=== PATIENT | female | born 1990 | race Caucasian/White ===

== ENCOUNTER 2020-01-14 22:37 | Inpatient (IN) | payer OTHER, SELFPAY ==
[2020-01-14 22:41] VITALS: BP 114/74; BP 121/68; PULSE 84; PULSE 86; RESP 18; TEMP 36.9; O2SAT 96; O2SAT 99; BMI 30.7
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
[2020-01-14 23:09] VITALS: BP 121/68; PULSE 86; RESP 18; TEMP 36.9; O2SAT 96
[2020-01-14 23:50] LABS: Basophils Absolute Auto 0.1 X10*3/uL (0.0-0.2); Basophils Percent Auto 0.4 % (0-2); Eosinophils Absolute Auto 0.1 X10*3/uL (0.0-0.4); Eosinophils Percent Auto 0.6 % (0-4); Hematocrit 41.3 % (37-47); Hemoglobin 13.5 g/dl (12.0-16.0); Imm Gran Abs Auto 0.07 X10*3/uL (0.00-0.03); Imm Gran Pct Auto 0.5 % (0.0-0.4); Lymphocytes Absolute Auto 2.8 X10*3/uL (1.2-4.9); Lymphocytes Percent Auto 21.4 % (20-40); Mean Corpuscular HGB Conc 32.7 g/dl (31.0-35.0); Mean Corpuscular Volume 91.8 fL (80-98); Mean Platelet Volume 9.5 fL (9.4-12.3); Monocytes Percent Auto 7.4 % (2-11); Neutrophils Absolute Auto 9.2 X10*3/uL (2.0-8.3); Neutrophils Percent Auto 69.7 % (45-73); Platelet Count 303 X10*3/uL (160-400); Red Cell Distribution Width 12.6 % (11.0-16.0); White Blood Count 13.2 X10*3/uL (4.8-10.8)
[2020-01-14 23:51] LABS: MANUAL DIFF FLAG NO
[2020-01-14 23:54] LABS: UPreg QC Valid YES; Urine Pregnancy NEGATIVE (NEGATIVE)
[2020-01-15 00:02] VITALS: BP 130/76; PULSE 93; RESP 18; O2SAT 95
[2020-01-15 00:09] LABS: Amphetamine Screen Urine Not Detected (Not Detect); Barbiturates, Urine Not Detected (Not Detect); Benzodiazepines Screen Urine Not Detected (Not Detect); Cannabinoid Screen Urine Not Detected (Not Detect); Cocaine Screen Urine Not Detected (Not Detect); Ethanol < 10 mg/dL; Opiate Screen Urine Not Detected (Not Detect); Phencyclidine Screen Urine Not Detected (Not Detect)
[2020-01-15 00:11] LABS: Alanine Aminotransferase 47 U/L (0-31); Albumin Level 4.3 g/dL (3.5-5.0); Alkaline Phosphatase 86 U/L (39-117); Aspartate Amino Transferase 15 U/L (5-31); Bilirubin Direct 0.2 mg/dL (0.0-0.5); Bilirubin Total 0.4 mg/dL (0.0-1.0)
[2020-01-15 00:12] LABS: Alanine Aminotransferase 46 U/L (0-31); Albumin Level 4.2 g/dL (3.5-5.0); Alkaline Phosphatase 83 U/L (39-117); Anion Gap 12 (12-20); Aspartate Amino Transferase 13 U/L (5-31); Bilirubin Total 0.4 mg/dL (0.0-1.0); Blood Urea Nitrogen 17 mg/dL (9-16); Calcium 9.1 mg/dL (8.4-10.2); Carbon Dioxide 28 mmol/L (22-29); Chloride 105 mmol/L (96-108); Creatinine Clr Calc Pharmacy 97.3; Estimated Glomerular Filt Rate > 60; Glucose Random 107 mg/dL (60-115); Sodium 141 mmol/L (135-145); Total Protein 6.9 g/dL (6.5-8.0)
[2020-01-15 06:00] VITALS: BP 125/67; PULSE 89; RESP 18; TEMP 35.8; O2SAT 97
--- NOTE | 2020-01-15 07:06 | PC.NURSE ---
Report recieved. Pt currently sleeping, breakfast at bedside. Respirations even and unlabored, in no apparent distress. Pt is inpatient bedsearch.
[2020-01-15 09:04] VITALS: BP 130/64; PULSE 78; RESP 18; TEMP 36.7; O2SAT 96
[2020-01-15] MEDS: predniSONE 10 MG TABLET PO (09:31)
[2020-01-15 11:57] LABS: COVID-19 Test Negative (Negative)
--- NOTE | 2020-01-15 12:38 | PC.NURSE ---
Patient remains on 1:1 for safety. Pt took pillow case off pillow and began to put around her neck, pt easily redirected. Pt currently resting, agrees to remain safe.
--- NOTE | 2020-01-15 13:58 | MHC.CARE ---
t/w presented pt w a CV and she willingly signed. Pt escorted. to [facility] for admission.
[2020-01-15 18:00] VITALS: BP 109/61; PULSE 84; TEMP 36.4
--- NOTE | 2020-01-15 19:29 | PC.ADMIT ---
A 29 year old single female was admitted as a [facility] to [facility] at 1340 following referral from [facility]. Pt has no previous admissions here but reports recent hospitalizations at [facility] and [facility]. Pt was sent by ambulance to [facility] on 01/14/20 shortly after her admission there due to self-harming, suicidal ideation with plan, means and intention. Pt had recent evaluations at [facility] from their office and PHP after pt disclosed severe depression, suicidal ideation with a plan to either overdose or hang self. Pt has been unable to identify a precipitant and reported feeling overwhelmed with persistent thoughts of dying. Pt has researched ways of killing herself and has kept notes. Pt was discharged from [facility] on 12/25/19 and was her third IPLOC since October. Pt had been taking Lexapro which was started at [facility] and was discontinued because of increased suicidal thinking. Pt was started on Lamictal which was stopped because of a full body rash which was treated with prednisone. Prednisone taper was almost complete per pt; medical record showed prednisone 10mg PO ONE was given in ED. Pt was calm and cooperative upon arrival, but was found with a pillowcase wrapped around her neck; pt placed on 1:1 at that time. Pt reported command AH telling her to commit suicide. When pt was asked if she could come to staff with feelings of suicidality, pt smiled at this senior writer and said usually no . Pt denies substance issues. Medical issues include only the recent allergic reaction to Prednisone. Nurse-Nurse done and admitting orders obtained. Pt is being monitored in her room by a sitter at this time.
[2020-01-15] MEDS: QUEtiapine Fumarate 25 MG TABLET 50 MG PO (20:15)
[2020-01-16 06:25] VITALS: BP 99/58; PULSE 81; RESP 16; TEMP 36.8
[2020-01-16] MEDS: hydrOXYzine HCL 50 MG TABLET PO ×2 (08:33→13:53)
[2020-01-16] MEDS: predniSONE 10 MG TABLET 5 MG PO (08:35)
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
[2020-01-16] MEDS: ARIPiprazole 5 MG TABLET PO (14:44)
[2020-01-16 18:00] VITALS: BP 127/79; PULSE 101; TEMP 36.8
[2020-01-16] MEDS: QUEtiapine Fumarate 25 MG TABLET 50 MG PO (19:52)
[2020-01-16 23:59] VITALS: BP 116/59; PULSE 80; TEMP 36.5
[2020-01-17 06:30] VITALS: BP 102/99; PULSE 83; RESP 18; TEMP 36.2; O2SAT 96
[2020-01-17] MEDS: ARIPiprazole 5 MG TABLET 2.5 MG PO (09:13)
[2020-01-17] MEDS: hydrOXYzine HCL 50 MG TABLET PO ×2 (09:14→23:14)
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
--- NOTE | 2020-01-17 17:27 | P.PNPSI_ITS ---
Subjective Subjective Date of Service: 01/17/20 Reason For Visit: Major Depression Subjective Notes: Conditional Voluntary Interim History: Teresa remains focused on wanting to hurt herself and she is very sad about losing her BF and the changes with COVID. She continues to have self harming thoughts. Medication Compliance: Yes Side effects from medications: No Attending Groups: No Review of Systems Acute medical concerns: No Medical Review of Systems: unchanged Review of Systems Reports system reviewed and no additional complaints, except as documented and Reports as per [facility] Mental Status Exam Mental Status Exam Patient Appearance: Disheveled Patient Orientation: Person and Place Level of Consciousness: Appropriate Patient Behavior: Dependent and Good Eye Contact Mood Description: Calm, Apathetic and Cheerful Affect Description: Calm and Apathetic Ability to Follow Directions: Poor Speech Pattern: Spontaneous Speech and Coherent Memory Description: Intact Delusions: Not Present Thought Process: Distracted Thought Content: positive for Intact, positive for Suicidal Ideation and negative for Homicidal Ideation Depressive Symptoms: Increased Irritability, Crying Spells, Feelings of W orthlessness, Hopelessness, Feelings of Guilt, Thoughts of /Suicide and Difficulty Concentrating Judgement: Fair Diagnostics Vital Signs (24Hr): Vital Signs - 24 hr 01/16/20 18:00 01/16/20 23:59 01/17/20 06:30 Temperature 98.2 F 97.7 F 97.1 F Pulse Rate 101 H 80 83 Respiratory Rate 18 Blood Pressure 127/79 116/59 L 102/99 H Pulse Oximetry 96 Body Mass Index 30.7 Labs Results: 01/14/20 23:41 01/14/20 23:41 Medications Medications Current Medications Generic Name Dose Route Start Last Admin Trade Name Roslyn PRN Reason Stop Dose Admin Acetaminophen 650 mg 01/15/20 19:01 Acetaminophen 325 Mg Tablet PO Q6H PRN Headache/Pain Mild Scale (1-3) Al Hydroxide/Mg Hydroxide 30 ml 01/15/20 19:01 Magnesium Hydrox/Alum Hydrox 30 Ml Oral.Susp PO Q6H PRN Heartburn/Nausea Aripiprazole 2.5 mg 01/17/20 09:00 01/17/20 09:13 Aripiprazole 5 Mg Tablet PO 2.5 mg DAILY ASHLEY Administration Hydroxyzine HCl 25 mg 01/15/20 19:01 Hydroxyzine Hcl 25 Mg Tablet PO BEDTIME PRN Anxiety Hydroxyzine HCl 50 mg 01/15/20 19:59 01/17/20 09:14 Hydroxyzine Hcl 50 Mg Tablet PO 50 mg TID PRN Administration anxiety Magnesium Hydroxide 30 ml 01/15/20 19:01 Milk Of Magnesia 30 Ml Oral.Susp PO DAILY PRN Constipation Quetiapine Fumarate 25 mg 01/16/20 20:09 Quetiapine Fumarate 25 Mg Tablet PO BEDTIME MRX1 PRN anxiety/restlessness Allergies Allergies Allergy/AdvReac Type Severity Reaction Status Date / Time lamotrigine [From Lamictal] Allergy Rash Verified 01/14/20 23:14 Assessment & Plan Assessment & Plan (1) Major depressive disorder, recurrent severe without psychotic features: Status: Acute Code(s): F33.2 - Major depressive disorder, recurrent severe without psychotic features (2) Borderline personality disorder: Status: Acute Code(s): F60.3 - Borderline personality disorder Assessment and Plan: CT low dose abilify Collect collateral history Greater than 50% of the session was spent on counseling and/or coordination of care Patient educated on: diagnosis, medication risk/benefits and substance abuse Informed Consent: further education needed Reason for contiued inpatient stay Substantial Risk for: inability to function and rapid decompensation
[2020-01-17 18:00] VITALS: BP 110/66; PULSE 95; TEMP 36.8
[2020-01-17] MEDS: QUEtiapine Fumarate 25 MG TABLET PO (23:14)
[2020-01-18 06:35] VITALS: BP 104/56; PULSE 86; RESP 16; TEMP 36; O2SAT 96
--- NOTE | 2020-01-18 09:33 | P.PNPSI_ITS ---
Subjective Subjective Date of Service: 01/18/20 Reason For Visit: Major Depression Subjective Notes: Conditional Voluntary Interim History: Teresa was slightly brighter today. She has tolerated low dose of abilify, and she has maintained her BP. She slept well. She continues to have urges to hurt herself. She is not able to guarantee that she will not. She was encouraged to go to groups. Medication Compliance: Yes Side effects from medications: No Attending Groups: No Review of Systems Acute medical concerns: No Medical Review of Systems: unchanged Review of Systems Reports system reviewed and no additional complaints, except as documented and Reports as per [facility] Mental Status Exam Mental Status Exam Patient Appearance: Disheveled Patient Orientation: Person and Place Level of Consciousness: Appropriate Patient Behavior: Dependent and Good Eye Contact Mood Description: Calm, Apathetic and Cheerful Affect Description: Calm and Apathetic Ability to Follow Directions: Poor Speech Pattern: Spontaneous Speech and Coherent Memory Description: Intact Delusions: Not Present Thought Process: Distracted Thought Content: positive for Intact, positive for Suicidal Ideation and negative for Homicidal Ideation Depressive Symptoms: Increased Irritability, Crying Spells, Feelings of Worthlessness, Hopelessness, Feelings of Guilt, Thoughts of /Suicide and Difficulty Concentrating Judgement: Fair Diagnostics Vital Signs (24Hr): Vital Signs - 24 hr 01/17/20 18:00 01/18/20 06:35 Temperature 98.2 F 96.8 F Pulse Rate 95 86 Respiratory Rate 16 Blood Pressure 110/66 104/56 L Pulse Oximetry 96 Body Mass Index 30.7 Labs Results: 01/14/20 23:41 01/14/20 23:41 Medications Medications Current Medications Generic Name Dose Route Start Last Admin Trade Name Roslyn PRN Reason Stop Dose Admin Acetaminophen 650 mg 01/15/20 19:01 Acetaminophen 325 Mg Tablet PO Q6H PRN Headache/Pain Mild Scale (1-3) Al Hydroxide/Mg Hydroxide 30 ml 01/15/20 19:01 Magnesium Hydrox/Alum Hydrox 30 Ml Oral.Susp PO Q6H PRN Heartburn/Nausea Aripiprazole 5 mg 01/19/20 09:00 Aripiprazole 5 Mg Tablet PO DAILY ASHLEY Aripiprazole 2 mg 01/18/20 09:31 Aripiprazole 2 Mg Tablet PO 01/18/20 09:32 ONCE ONE Hydroxyzine HCl 25 mg 01/15/20 19:01 Hydroxyzine Hcl 25 Mg Tablet PO BEDTIME PRN Anxiety Hydroxyzine HCl 50 mg 01/15/20 19:59 01/17/20 23:14 Hydroxyzine Hcl 50 Mg Tablet PO 50 mg TID PRN Administration anxiety Magnesium Hydroxide 30 ml 01/15/20 19:01 Milk Of Magnesia 30 Ml Oral.Susp PO DAILY PRN Constipation Quetiapine Fumarate 25 mg 01/16/20 20:09 01/17/20 23:14 Quetiapine Fumarate 25 Mg Tablet PO 25 mg BEDTIME MRX1 PRN Administration anxiety/restlessness Allergies Allergies Allergy/AdvReac Type Severity Reaction Status Date / Time lamotrigine [From Lamictal] Allergy Rash Verified 01/14/20 23:14 Assessment & Plan Assessment & Plan (1) Major depressive disorder, recurrent severe without psychotic features: Status: Acute Code(s): F33.2 - Major depressive disorder, recurrent severe without psychotic features (2) Borderline personality disorder: Status: Acute Code(s): F60.3 - Borderline personality disorder Assessment and Plan: CT abilify Encourage coping skills Work with DDS around support options in community. Greater than 50% of the session was spent on counseling and/or coordination of care Patient educated on: diagnosis and medication risk/benefits Informed Consent: further education needed Reason for contiued inpatient stay Substantial Risk for: rapid decompensation
[2020-01-18] MEDS: ARIPiprazole 5 MG TABLET 2.5 MG PO (09:35)
[2020-01-18] MEDS: ARIPiprazole 2 MG TABLET PO (10:00)
[2020-01-18] MEDS: hydrOXYzine HCL 50 MG TABLET PO (12:55)
[2020-01-18 18:00] VITALS: BP 123/78; PULSE 95; TEMP 36.4
[2020-01-19] MEDS: QUEtiapine Fumarate 25 MG TABLET PO (00:14)
[2020-01-19] MEDS: hydrOXYzine HCL 50 MG TABLET PO ×3 (00:14→13:25)
[2020-01-19] MEDS: hydrOXYzine HCL 25 MG TABLET PO (01:23)
[2020-01-19 05:30] VITALS: BP 117/60; PULSE 101; RESP 16; TEMP 36.6
--- NOTE | 2020-01-19 06:00 | PC.NURSE ---
Patient sitting in hallway at start of shift with patient observer. Pt picking and scratching at arm and attempting to choke self with one hand. Pt required redirection an several occasions. Could not name coping tools and refused guided deep breathing or activities. 0015 received medication for sleep. Pt continued to sit in [place] and attempted self-harm via paper cut. Received medication for sleep at 0125 and went to bed. Slept intermittently until 0345 and sat in the kitchen reading magazines. Pt received additional PRN medication for anxiety.
[2020-01-19] MEDS: ARIPiprazole 5 MG TABLET PO (09:48)
--- NOTE | 2020-01-19 11:58 | HO.PSYCHPN ---
Subjective Subjective Reason For Visit: Major Depression Interim History: Teresa continues to be brighter today. She is tolerating abilify, and she has maintained her BP her pule high at 104. She slept well. She continues to have urges to hurt herself. She is not able to guarantee that she will not. She was encouraged to go to groups. Review of Systems Reports system reviewed and no additional complaints, except as documented and Reports as per [facility] Mental Status Exam Mental Status Exam Patient Appearance: Disheveled Patient Orientation: Person and Place Level of Consciousness: Appropriate Patient Behavior: Dependent and Good Eye Contact Mood Description: Calm, Apathetic and Cheerful Affect Description: Calm and Apathetic Ability to Follow Directions: Poor Speech Pattern: Spontaneous Speech and Coherent Memory Description: Intact Diagnostics Vital Signs (24Hr): Vital Signs - 24 hr 01/18/20 18:00 01/19/20 05:30 Temperature 97.5 F 97.9 F Pulse Rate 95 101 H Respiratory Rate 16 Blood Pressure 123/78 117/60 Body Mass Index 30.7 Labs Results: 01/14/20 23:41 01/14/20 23:41 Medications Medications Current Medications Generic Name Dose Route Start Last Admin Trade Name Freq PRN Reason Stop Dose Admin Acetaminophen 650 mg 01/15/20 19:01 Acetaminophen 325 Mg Tablet PO Q6H PRN Headache/Pain Mild Scale (1-3) Al Hydroxide/Mg Hydroxide 30 ml 01/15/20 19:01 Magnesium Hydrox/Alum Hydrox 30 Ml Oral.Susp PO Q6H PRN Heartburn/Nausea Aripiprazole 5 mg 01/19/20 09:00 01/19/20 09:48 Aripiprazole 5 Mg Tablet PO 5 mg DAILY ASHLEY Administration Hydroxyzine HCl 25 mg 01/15/20 19:01 01/19/20 01:23 Hydroxyzine Hcl 25 Mg Tablet PO 25 mg BEDTIME PRN Administration Anxiety Hydroxyzine HCl 50 mg 01/15/20 19:59 01/19/20 05:15 Hydroxyzine Hcl 50 Mg Tablet PO 50 mg TID PRN Administration anxiety Magnesium Hydroxide 30 ml 01/15/20 19:01 Milk Of Magnesia 30 Ml Oral.Susp PO DAILY PRN Constipation Quetiapine Fumarate 25 mg 01/16/20 20:09 01/19/20 00:14 Quetiapine Fumarate 25 Mg Tablet PO 25 mg BEDTIME MRX1 PRN Administration anxiety/restlessness Allergies Allergies Allergy/AdvReac Type Severity Reaction Status Date / Time lamotrigine [From Lamictal] Allergy Rash Verified 01/14/20 23:14 Assessment & Plan Assessment & Plan (1) Major depressive disorder, recurrent severe without psychotic features: Status: Acute Code(s): F33.2 - Major depressive disorder, recurrent severe without psychotic features (2) Borderline personality disorder: Status: Acute Code(s): F60.3 - Borderline personality disorder Assessment and Plan: CT abilify monitor vitals Encourage coping skills Work with DDS around support options in community. Greater than 50% of the session was spent on counseling and/or coordination of care
--- NOTE | 2020-01-19 15:07 | PC.NURSE ---
pt had blanket wrapped her arms stating she was cold. later told staff she scratched her arms. approx 6 scratches/cuts noted. when asked what she used she stated a staple. and handed it over to this technical proposal writer. discussed that we appreciate her honesty about what she has done but we may need to do something with the blanket. stated she would look to keep the blanket. this technical proposal writer agreeed but any further incidents we would have to remove the blanket and give her long sleeves to keep her arms warm and where we could visually see her arms more clearly.
--- NOTE | 2020-01-19 15:19 | PC.NURSE ---
PT REMAINS ON 1:1. STAFF AWARE TO KEEP AN EYE ON PTS HANDS AT ALL TIMES. AWARE TO ASK PT TO SEE HANDS OF COVERED BY BLANKET.
[2020-01-19 17:14] VITALS: BP 126/70; PULSE 104; TEMP 37
[2020-01-20] MEDS: QUEtiapine Fumarate 25 MG TABLET PO ×2 (00:07→01:05)
[2020-01-20] MEDS: hydrOXYzine HCL 50 MG TABLET PO ×2 (00:08→13:16)
[2020-01-20] MEDS: hydrOXYzine HCL 25 MG TABLET PO (01:05)
[2020-01-20 06:30] VITALS: BP 113/56; PULSE 86; RESP 18; TEMP 36.1; O2SAT 96
[2020-01-20] MEDS: ARIPiprazole 5 MG TABLET PO (08:50)
--- NOTE | 2020-01-20 12:16 | P.PNPSI_ITS ---
Subjective Subjective Reason For Visit: Major Depression Interim History: Teresa scratched self twice today with staple She is tolerating abilify, and she has maintained her BP and P She continues to have urges to hurt herself. She is not able to guarantee that she will not. She was encouraged to go to groups. Review of Systems Skin/Breast: Reports wounds (small supericial scratches on arm) Reports system reviewed and no additional complaints, except as documented and Reports as per [facility] Mental Status Exam Mental Status Exam Patient Appearance: Disheveled Patient Orientation: Person and Place Level of Consciousness: Appropriate Patient Behavior: Dependent and Good Eye Contact Mood Description: Calm, Apathetic and Cheerful Affect Description: Calm and Apathetic Ability to Follow Directions: Poor Speech Pattern: Spontaneous Speech and Coherent Memory Description: Intact Thought Process: Intact Thought Content: positive for Intact and positive for [place] Depressive Symptoms: Loss of Int. in Activity, Feelings of Worthlessness, Hopelessness, Thoughts of /Suicide and Loss of Energy Judgement: Poor Diagnostics Vital Signs (24Hr): Vital Signs - 24 hr 01/19/20 17:14 01/20/20 06:30 Temperature 98.6 F 96.9 F Pulse Rate 104 H 86 Respiratory Rate 18 Blood Pressure 126/70 113/56 L Pulse Oximetry 96 Body Mass Index 30.7 Labs Results: 01/14/20 23:41 01/14/20 23:41 Medications Medications Current Medications Generic Name Dose Route Start Last Admin Trade Name Freq PRN Reason Stop Dose Admin Acetaminophen 650 mg 01/15/20 19:01 Acetaminophen 325 Mg Tablet PO Q6H PRN Headache/Pain Mild Scale (1-3) Al Hydroxide/Mg Hydroxide 30 ml 01/15/20 19:01 Magnesium Hydrox/Alum Hydrox 30 Ml Oral.Susp PO Q6H PRN Heartburn/Nausea Aripiprazole 5 mg 01/19/20 09:00 01/20/20 08:50 Aripiprazole 5 Mg Tablet PO 5 mg DAILY ASHLEY Administration Hydroxyzine HCl 25 mg 01/15/20 19:01 01/20/20 01:05 Hydroxyzine Hcl 25 Mg Tablet PO 25 mg BEDTIME PRN Administration Anxiety Hydroxyzine HCl 50 mg 01/15/20 19:59 01/20/20 00:08 Hydroxyzine Hcl 50 Mg Tablet PO 50 mg TID PRN Administration anxiety Magnesium Hydroxide 30 ml 01/15/20 19:01 Milk Of Magnesia 30 Ml Oral.Susp PO DAILY PRN Constipation Quetiapine Fumarate 25 mg 01/16/20 20:09 01/20/20 01:05 Quetiapine Fumarate 25 Mg Tablet PO 25 mg BEDTIME MRX1 PRN Administration anxiety/restlessness Allergies Allergies Allergy/AdvReac Type Severity Reaction Status Date / Time lamotrigine [From Lamictal] Allergy Rash Verified 01/14/20 23:14 Assessment & Plan Assessment & Plan (1) Major depressive disorder, recurrent severe without psychotic features: Status: Acute Code(s): F33.2 - Major depressive disorder, recurrent severe without psychotic features (2) Borderline personality disorder: Status: Acute Code(s): F60.3 - Borderline personality disorder Assessment and Plan: CT abilify monitor vitals Encourage coping skills Work with DDS around support options in community. Greater than 50% of the session was spent on counseling and/or coordination of care Reason for contiued inpatient stay Substantial Risk for: harm to self, inability to function and rapid decompensation
[2020-01-20 16:28] VITALS: BP 131/73; PULSE 99; TEMP 36.8
[2020-01-21] MEDS: QUEtiapine Fumarate 25 MG TABLET PO (00:08)
[2020-01-21] MEDS: hydrOXYzine HCL 50 MG TABLET PO ×4 (00:08→21:34)
[2020-01-21] MEDS: ARIPiprazole 5 MG TABLET PO (08:38)
[2020-01-21 08:41] VITALS: BP 135/74; PULSE 80; RESP 16; TEMP 37.1; O2SAT 98
--- NOTE | 2020-01-21 09:29 | HO.PSYCHPN ---
Subjective Subjective Date of Service: 01/21/20 Reason For Visit: Major Depression Subjective Notes: Conditional Voluntary Interim History: Teresa did not self harm today, but she remains quite depressed. She reports that the lamictal that was prescribed previously was very helpful, but she developed a rash. We agreed to trileptal since she reports a great deal of social anxiety. Medication Compliance: Yes Side effects from medications: No Review of Systems Acute medical concerns: No Medical Review of Systems: unchanged Review of Systems Reports system reviewed and no additional complaints, except as documented and Reports as per [facility] Mental Status Exam Mental Status Exam Patient Appearance: Disheveled Patient Orientation: Person and Place Level of Consciousness: Appropriate Patient Behavior: Dependent and Good Eye Contact Mood Description: Calm, Apathetic and Cheerful Affect Description: Calm and Apathetic Ability to Follow Directions: Poor Speech Pattern: Spontaneous Speech and Coherent Memory Description: Intact Hallucinations: None Delusions: Not Present Thought Process: Intact Thought Content: positive for Intact, positive for [place], negative for Suicidal Ideation and negative for Homicidal Ideation Depressive Symptoms: Loss of Int. in Activity, Feelings of Worthlessness, Hopelessness, Thoughts of /Suicide and Loss of Energy Judgement: Poor Diagnostics Vital Signs (24Hr): Vital Signs - 24 hr 01/20/20 16:28 01/21/20 08:41 Temperature 98.3 F 98.8 F Pulse Rate 99 80 Respiratory Rate 16 Blood Pressure 131/73 135/74 Pulse Oximetry 98 Body Mass Index 30.7 Labs Results: 01/14/20 23:41 01/14/20 23:41 Medications Medications Current Medications Generic Name Dose Route Start Last Admin Trade Name Freq PRN Reason Stop Dose Admin Acetaminophen 650 mg 01/15/20 19:01 Acetaminophen 325 Mg Tablet PO Q6H PRN Headache/Pain Mild Scale (1-3) Al Hydroxide/Mg Hydroxide 30 ml 01/15/20 19:01 Magnesium Hydrox/Alum Hydrox 30 Ml Oral.Susp PO Q6H PRN Heartburn/Nausea Aripiprazole 5 mg 01/19/20 09:00 01/21/20 08:38 Aripiprazole 5 Mg Tablet PO 5 mg DAILY ASHLEY Administration Hydroxyzine HCl 25 mg 01/15/20 19:01 01/20/20 01:05 Hydroxyzine Hcl 25 Mg Tablet PO 25 mg BEDTIME PRN Administration Anxiety Hydroxyzine HCl 50 mg 01/15/20 19:59 01/21/20 08:38 Hydroxyzine Hcl 50 Mg Tablet PO 50 mg TID PRN Administration anxiety Magnesium Hydroxide 30 ml 01/15/20 19:01 Milk Of Magnesia 30 Ml Oral.Susp PO DAILY PRN Constipation Quetiapine Fumarate 25 mg 01/16/20 20:09 01/21/20 00:08 Quetiapine Fumarate 25 Mg Tablet PO 25 mg BEDTIME MRX1 PRN Administration anxiety/restlessness Allergies Allergies Allergy/AdvReac Type Severity Reaction Status Date / Time lamotrigine [From Lamictal] Allergy Rash Verified 01/14/20 23:14 Assessment & Plan Assessment & Plan (1) Major depressive disorder, recurrent severe without psychotic features: Status: Acute Code(s): F33.2 - Major depressive disorder, recurrent severe without psychotic features (2) Borderline personality disorder: Status: Acute Code(s): F60.3 - Borderline personality disorder Assessment and Plan: Begin trileptal CT treatment plan Greater than 50% of the session was spent on counseling and/or coordination of care Patient educated on: diagnosis and medication risk/benefits Informed Consent: further education needed Reason for contiued inpatient stay Substantial Risk for: harm to self and rapid decompensation
[2020-01-21 16:30] VITALS: BP 124/73; PULSE 89; TEMP 37.1
[2020-01-21] MEDS: OXcarbazepine 150 MG TABLET PO (21:34)
[2020-01-22 06:00] VITALS: BP 114/73; PULSE 82; TEMP 36.4
[2020-01-22] MEDS: ARIPiprazole 5 MG TABLET PO (08:37)
[2020-01-22] MEDS: OXcarbazepine 150 MG TABLET PO (08:37)
[2020-01-22] MEDS: hydrOXYzine HCL 50 MG TABLET PO ×2 (14:13→19:06)
[2020-01-22 16:58] VITALS: BP 126/81; PULSE 91; TEMP 37.1
--- NOTE | 2020-01-22 17:35 | P.PNPSI_ITS ---
Subjective Subjective Date of Service: 01/22/20 Reason For Visit: Major Depression Subjective Notes: Conditional Voluntary Interim History: Teresa did self harm today with martha. She remains quite depressed. She has tolerated the trileptal. Medication Compliance: Yes Side effects from medications: No Attending Groups: No Review of Systems Acute medical concerns: No Medical Review of Systems: unchanged Review of Systems Reports system reviewed and no additional complaints, except as documented and Reports as per [facility] Mental Status Exam Mental Status Exam Patient Appearance: Disheveled Patient Orientation: Person and Place Level of Consciousness: Appropriate Patient Behavior: Dependent and Good Eye Contact Mood Description: Calm, Apathetic and Cheerful Affect Description: Calm and Apathetic Ability to Follow Directions: Poor Speech Pattern: Spontaneous Speech and Coherent Memory Description: Intact Hallucinations: None Delusions: Not Present Thought Process: Intact Thought Content: positive for Intact, positive for [place], negative for Suicidal Ideation and negative for Homicidal Ideation Depressive Symptoms: Loss of Int. in Activity, Feelings of Worthlessness, Hopelessness, Thoughts of /Suicide and Loss of Energy Judgement: Poor Diagnostics Vital Signs (24Hr): Vital Signs - 24 hr 01/22/20 06:00 Temperature 97.6 F Pulse Rate 82 Blood Pressure 114/73 Body Mass Index 30.7 Labs Results: 01/14/20 23:41 01/14/20 23:41 Medications Medications Current Medications Generic Name Dose Route Start Last Admin Trade Name Freq PRN Reason Stop Dose Admin Acetaminophen 650 mg 01/15/20 19:01 Acetaminophen 325 Mg Tablet PO Q6H PRN Headache/Pain Mild Scale (1-3) Al Hydroxide/Mg Hydroxide 30 ml 01/15/20 19:01 Magnesium Hydrox/Alum Hydrox 30 Ml Oral.Susp PO Q6H PRN Heartburn/Nausea Aripiprazole 5 mg 01/19/20 09:00 01/22/20 08:37 Aripiprazole 5 Mg Tablet PO 5 mg DAILY ASHLEY Administration Bacitracin 1 appl 01/22/20 21:00 Bacitracin Oint 14 Gm Tube TOPICAL BID ASHLEY Protocol Hydroxyzine HCl 25 mg 01/15/20 19:01 01/20/20 01:05 Hydroxyzine Hcl 25 Mg Tablet PO 25 mg BEDTIME PRN Administration Anxiety Hydroxyzine HCl 50 mg 01/15/20 19:59 01/22/20 14:13 Hydroxyzine Hcl 50 Mg Tablet PO 50 mg TID PRN Administration anxiety Magnesium Hydroxide 30 ml 01/15/20 19:01 Milk Of Magnesia 30 Ml Oral.Susp PO DAILY PRN Constipation Oxcarbazepine 150 mg 01/21/20 21:00 01/22/20 08:37 Oxcarbazepine 150 Mg Tablet PO 150 mg BID ASHLEY Administration Quetiapine Fumarate 25 mg 01/16/20 20:09 01/21/20 00:08 Quetiapine Fumarate 25 Mg Tablet PO 25 mg BEDTIME MRX1 PRN Administration anxiety/restlessness Allergies Allergies Allergy/AdvReac Type Severity Reaction Status Date / Time lamotrigine [From Lamictal] Allergy Rash Verified 01/14/20 23:14 Assessment & Plan Assessment & Plan (1) Major depressive disorder, recurrent severe without psychotic features: Status: Acute Code(s): F33.2 - Major depressive disorder, recurrent severe without psychotic features (2) Borderline personality disorder: Status: Acute Code(s): F60.3 - Borderline personality disorder Assessment and Plan: Increase trileptal CT treatment plan CT 1:1 Greater than 50% of the session was spent on counseling and/or coordination of care Patient educated on: diagnosis and medication risk/benefits Informed Consent: further education needed Reason for contiued inpatient stay Substantial Risk for: harm to self and rapid decompensation
[2020-01-22] MEDS: OXcarbazepine 300 MG TABLET PO (20:30)
[2020-01-23 06:25] VITALS: BP 122/58; PULSE 77; RESP 16; TEMP 36.9
[2020-01-23] MEDS: OXcarbazepine 300 MG TABLET PO ×2 (08:31→23:03)
[2020-01-23] MEDS: ARIPiprazole 5 MG TABLET PO (08:31)
[2020-01-23] MEDS: Bacitracin Oint 14 GM TUBE 1 APPL TOPICAL ×2 (08:32→23:03)
--- NOTE | 2020-01-23 09:31 | P.PNPSI_ITS ---
Subjective Subjective Date of Service: 01/23/20 Reason For Visit: Major Depression Subjective Notes: Conditional Voluntary Interim History: Teresa did self harm today with martha. We discussed why she keeps doing this since she states that it makes her feel worse when she does this. She agreed to work on skills and to go to groups. She remains quite depressed. She has tolerated the increase in trileptal. Medication Compliance: Yes Side effects from medications: No Attending Groups: No Review of Systems Acute medical concerns: No Medical Review of Systems: unchanged Review of Systems Reports system reviewed and no additional complaints, except as documented and Reports as per [facility] Mental Status Exam Mental Status Exam Patient Appearance: Disheveled Patient Orientation: Person and Place Level of Consciousness: Appropriate Patient Behavior: Dependent and Good Eye Contact Mood Description: Calm, Apathetic and Cheerful Affect Description: Calm and Apathetic Ability to Follow Directions: Poor Speech Pattern: Spontaneous Speech and Coherent Memory Description: Intact Hallucinations: None Delusions: Not Present Thought Process: Intact Thought Content: positive for Intact, positive for [place], negative for Suicidal Ideation and negative for Homicidal Ideation Depressive Symptoms: Loss of Int. in Activity, Feelings of Worthlessness, Hop elessness, Thoughts of /Suicide and Loss of Energy Judgement: Poor Diagnostics Vital Signs (24Hr): Vital Signs - 24 hr 01/22/20 16:58 01/23/20 06:25 Temperature 98.8 F 98.5 F Pulse Rate 91 77 Respiratory Rate 16 Blood Pressure 126/81 122/58 L Body Mass Index 30.7 Labs Results: 01/14/20 23:41 01/14/20 23:41 Medications Medications Current Medications Generic Name Dose Route Start Last Admin Trade Name Roslyn PRN Reason Stop Dose Admin Acetaminophen 650 mg 01/15/20 19:01 Acetaminophen 325 Mg Tablet PO Q6H PRN Headache/Pain Mild Scale (1-3) Al Hydroxide/Mg Hydroxide 30 ml 01/15/20 19:01 Magnesium Hydrox/Alum Hydrox 30 Ml Oral.Susp PO Q6H PRN Heartburn/Nausea Aripiprazole 5 mg 01/19/20 09:00 01/23/20 08:31 Aripiprazole 5 Mg Tablet PO 5 mg DAILY ASHLEY Administration Bacitracin 1 appl 01/22/20 21:00 01/23/20 08:32 Bacitracin Oint 14 Gm Tube TOPICAL 1 appl BID ASHLEY Administration Protocol Hydroxyzine HCl 25 mg 01/15/20 19:01 01/20/20 01:05 Hydroxyzine Hcl 25 Mg Tablet PO 25 mg BEDTIME PRN Administration Anxiety Hydroxyzine HCl 50 mg 01/15/20 19:59 01/22/20 19:06 Hydroxyzine Hcl 50 Mg Tablet PO 50 mg TID PRN Administration anxiety Magnesium Hydroxide 30 ml 01/15/20 19:01 Milk Of Magnesia 30 Ml Oral.Susp PO DAILY PRN Constipation Oxcarbazepine 300 mg 01/22/20 21:00 01/23/20 08:31 Oxcarbazepine 300 Mg Tablet PO 300 mg BID ASHLEY Administration Quetiapine Fumarate 25 mg 01/16/20 20:09 01/21/20 00:08 Quetiapine Fumarate 25 Mg Tablet PO 25 mg BEDTIME MRX1 PRN Administration anxiety/restlessness Allergies Allergies Allergy/AdvReac Type Severity Reaction Status Date / Time lamotrigine [From Lamictal] Allergy Rash Verified 01/14/20 23:14 Assessment & Plan Assessment & Plan (1) Major depressive disorder, recurrent severe without psychotic features: Status: Acute Code(s): F33.2 - Major depressive disorder, recurrent severe without psychotic features Assessment and Plan: CT current treatment plan CT 1:1 Liase with DDS Greater than 50% of the session was spent on counseling and/or coordination of care
[2020-01-23 16:30] VITALS: BP 127/75; PULSE 100; TEMP 36.8
[2020-01-23] MEDS: hydrOXYzine HCL 50 MG TABLET PO (16:44)
[2020-01-23] MEDS: hydrOXYzine HCL 25 MG TABLET PO (23:03)
[2020-01-24] MEDS: QUEtiapine Fumarate 25 MG TABLET PO ×2 (00:22→23:49)
[2020-01-24 06:27] VITALS: BP 109/66; PULSE 87; RESP 16; TEMP 36.5; O2SAT 98
[2020-01-24] MEDS: ARIPiprazole 5 MG TABLET PO (09:02)
[2020-01-24] MEDS: OXcarbazepine 300 MG TABLET PO ×2 (09:02→22:03)
[2020-01-24] MEDS: Bacitracin Oint 14 GM TUBE 1 APPL TOPICAL ×2 (09:04→22:04)
--- NOTE | 2020-01-24 09:30 | P.PNPSI_ITS ---
Subjective Subjective Date of Service: 01/24/20 Reason For Visit: Major Depression Subjective Notes: Conditional Voluntary Interim History: Teresa did self harm last evening. She has been more active and is clearly able to express that she can not go home to her mother. She hopes for an apartment with staff. She remains quite depressed. She has tolerated the increase in trileptal. Medication Compliance: Yes Side effects from medications: No Attending Groups: No Review of Systems Acute medical concerns: No Medical Review of Systems: unchanged Review of Systems Reports system reviewed and no additional complaints, except as documented and R eports as per HPI Mental Status Exam Mental Status Exam Patient Appearance: Disheveled Patient Orientation: Person and Place Level of Consciousness: Appropriate Patient Behavior: Dependent and Good Eye Contact Mood Description: Calm, Apathetic and Cheerful Affect Description: Calm and Apathetic Ability to Follow Directions: Poor Speech Pattern: Spontaneous Speech and Coherent Memory Description: Intact Hallucinations: None Delusions: Not Present Thought Process: Intact Thought Content: positive for Intact, positive for [place], negative for Suici astrid Ideation and negative for Homicidal Ideation Depressive Symptoms: Loss of Int. in Activity, Feelings of Worthlessness, Hopelessness, Thoughts of /Suicide and Loss of Energy Judgement: Poor Diagnostics Vital Signs (24Hr): Vital Signs - 24 hr 01/23/20 16:30 01/24/20 06:27 Temperature 98.2 F 97.7 F Pulse Rate 100 87 Respiratory Rate 16 Blood Pressure 127/75 109/66 Pulse Oximetry 98 Body Mass Index 30.7 Labs Results: 01/14/20 23:41 01/14/20 23:41 Medications Medications Current Medications Generic Name Dose Route Start Last Admin Trade Name Roslyn PRN Reason Stop Dose Admin Acetaminophen 650 mg 01/15/20 19:01 Acetaminophen 325 Mg Tablet PO Q6H PRN Headache/Pain Mild Scale (1-3) Al Hydroxide/Mg Hydroxide 30 ml 01/15/20 19:01 Magnesium Hydrox/Alum Hydrox 30 Ml Oral.Susp PO Q6H PRN Heartburn/Nausea Aripiprazole 5 mg 01/19/20 09:00 01/24/20 09:02 Aripiprazole 5 Mg Tablet PO 5 mg DAILY ASHLEY Administration Bacitracin 1 appl 01/22/20 21:00 01/24/20 09:04 Bacitracin Oint 14 Gm Tube TOPICAL 1 appl BID ASHLEY Administration Protocol Hydroxyzine HCl 25 mg 01/15/20 19:01 01/23/20 23:03 Hydroxyzine Hcl 25 Mg Tablet PO 25 mg BEDTIME PRN Administration Anxiety Hydroxyzine HCl 50 mg 01/15/20 19:59 01/23/20 16:44 Hydroxyzine Hcl 50 Mg Tablet PO 50 mg TID PRN Administration anxiety Magnesium Hydroxide 30 ml 01/15/20 19:01 Milk Of Magnesia 30 Ml Oral.Susp PO DAILY PRN Constipation Oxcarbazepine 300 mg 01/22/20 21:00 01/24/20 09:02 Oxcarbazepine 300 Mg Tablet PO 300 mg BID ASHLEY Administration Quetiapine Fumarate 25 mg 01/16/20 20:09 01/24/20 00:22 Quetiapine Fumarate 25 Mg Tablet PO 25 mg BEDTIME MRX1 PRN Administration anxiety/restlessness Allergies Allergies Allergy/AdvReac Type Severity Reaction Status Date / Time lamotrigine [From Lamictal] Allergy Rash Verified 01/14/20 23:14 Assessment & Plan Assessment & Plan (1) Major depressive disorder, recurrent severe without psychotic features: Status: Acute Code(s): F33.2 - Major depressive disorder, recurrent severe without psychotic features Assessment and Plan: Continue current treatment plan Greater than 50% of the session was spent on counseling and/or coordination of care Patient educated on: diagnosis and medication risk/benefits Informed Consent: further education needed Reason for contiued inpatient stay Substantial Risk for: harm to self
[2020-01-24 17:59] VITALS: BP 119/70; PULSE 94; TEMP 36.6
[2020-01-25 06:25] VITALS: BP 111/64; PULSE 85; RESP 16; TEMP 36.6; O2SAT 97
--- NOTE | 2020-01-25 09:26 | P.PNPSI_ITS ---
Subjective Subjective Date of Service: 01/25/20 Reason For Visit: Major Depression Subjective Notes: Conditional Voluntary Interim History: Teresa has had no self harm for the last 24 hours. She has been going to groups and finding them helpful. She is also reading a lot of books. She has been more active and is clearly able to express that she can not go home to her mother. She hopes for an apartment with staff. She remains quite depressed. She has tolerated the increase in trileptal. Medication Compliance: Yes Side effects from medications: No Attending Groups: No Review of Systems Acute medical concerns: No Medical Review of Systems: unchanged Review of Systems Reports system reviewed and no additional complaints, except as documented and Reports as per [facility] Mental Status Exam Mental Status Exam Patient Appearance: Well Grooomed Patient Orientation: Person and Place Level of Consciousness: Appropriate Patient Behavior: Dependent and Good Eye Contact Mood Description: Calm and Apathetic Affect Description: Calm and Apathetic Ability to Follow Directions: Poor Speech Pattern: Spontaneous Speech and Coherent Memory Description: Intact Hallucinations: None Delusions: Not Present Thought Process: Intact Thought Content: positive for Intact, positive for [place], negative for Afshan cidal Ideation and negative for Homicidal Ideation Depressive Symptoms: Loss of Int. in Activity, Feelings of Worthlessness, Hopelessness, Thoughts of /Suicide and Loss of Energy Judgement: Poor Diagnostics Vital Signs (24Hr): Vital Signs - 24 hr 01/24/20 17:59 01/25/20 06:25 Temperature 97.9 F 97.8 F Pulse Rate 94 85 Respiratory Rate 16 Blood Pressure 119/70 111/64 Pulse Oximetry 97 Body Mass Index 30.7 Labs Results: 01/14/20 23:41 01/14/20 23:41 Medications Medications Current Medications Generic Name Dose Route Start Last Admin Trade Name Freq PRN Reason Stop Dose Admin Acetaminophen 650 mg 01/15/20 19:01 Acetaminophen 325 Mg Tablet PO Q6H PRN Headache/Pain Mild Scale (1-3) Al Hydroxide/Mg Hydroxide 30 ml 01/15/20 19:01 Magnesium Hydrox/Alum Hydrox 30 Ml Oral.Susp PO Q6H PRN Heartburn/Nausea Aripiprazole 5 mg 01/19/20 09:00 01/24/20 09:02 Aripiprazole 5 Mg Tablet PO 5 mg DAILY ASHLEY Administration Bacitracin 1 appl 01/22/20 21:00 01/24/20 22:04 Bacitracin Oint 14 Gm Tube TOPICAL 1 appl BID ASHLEY Administration Protocol Hydroxyzine HCl 25 mg 01/15/20 19:01 01/23/20 23:03 Hydroxyzine Hcl 25 Mg Tablet PO 25 mg BEDTIME PRN Administration Anxiety Hydroxyzine HCl 50 mg 01/15/20 19:59 01/23/20 16:44 Hydroxyzine Hcl 50 Mg Tablet PO 50 mg TID PRN Administration anxiety Magnesium Hydroxide 30 ml 01/15/20 19:01 Milk Of Magnesia 30 Ml Oral.Susp PO DAILY PRN Constipation Oxcarbazepine 300 mg 01/22/20 21:00 01/24/20 22:03 Oxcarbazepine 300 Mg Tablet PO 300 mg BID ASHLEY Administration Quetiapine Fumarate 25 mg 01/16/20 20:09 01/24/20 23:49 Quetiapine Fumarate 25 Mg Tablet PO 25 mg BEDTIME MRX1 PRN Administration anxiety/restlessness Allergies Allergies Allergy/AdvReac Type Severity Reaction Status Date / Time lamotrigine [From Lamictal] Allergy Rash Verified 01/14/20 23:14 Assessment & Plan Assessment & Plan (1) Major depressive disorder, recurrent severe without psychotic features: Status: Acute Code(s): F33.2 - Major depressive disorder, recurrent severe without psychotic features Assessment and Plan: CT current treatment plan Work with [facility] and [facility] regarding supportive housing Greater than 50% of the session was spent on counseling and/or coordination of care Patient educated on: diagnosis and medication risk/benefits Informed Consent: further education needed Reason for contiued inpatient stay Substantial Risk for: harm to self and inability to function
[2020-01-25] MEDS: ARIPiprazole 5 MG TABLET PO (10:26)
[2020-01-25] MEDS: OXcarbazepine 300 MG TABLET PO ×2 (10:27→21:22)
--- NOTE | 2020-01-25 16:09 | PC.NURSE ---
Teresa signed a 3-day notice today on 01/25/20, 3 day notice will be up on 01/30/20
[2020-01-25 18:00] VITALS: BP 127/86; PULSE 120; TEMP 36.2
[2020-01-25] MEDS: hydrOXYzine HCL 25 MG TABLET PO (21:28)
[2020-01-26 07:25] VITALS: BP 118/72; PULSE 77; TEMP 36.5
[2020-01-26] MEDS: OXcarbazepine 300 MG TABLET PO ×2 (09:09→21:52)
[2020-01-26] MEDS: ARIPiprazole 5 MG TABLET PO (09:09)
[2020-01-26 16:54] VITALS: BP 129/64; PULSE 87; TEMP 36.7
[2020-01-26] MEDS: hydrOXYzine HCL 50 MG TABLET PO (16:58)
[2020-01-26] MEDS: hydrOXYzine HCL 25 MG TABLET PO (21:56)
--- NOTE | 2020-01-27 00:41 | P.PNPSI_ITS ---
Subjective Subjective Date of Service: 01/26/20 Reason For Visit: Major Depression Interim History: Vitals reviewed: WnL Labs reviewed: no new labs Pt seen, chart reviewed and case discussed with nursing staff Pt is lying on bed under the covers; she smiles at remote mortgage underwriter and says she's good and denies any SI. She is calm and pleasant but has few words and only speaks when answering direct questions; she denies any complaints. Attending Pathologist asked about her 3 day which is due next week and pt said she's ready to go. Staff reports pt is med adherent; she remains on 1:1 but has recently been w [facility] behavioral incident Medication Compliance: Yes Attending Groups: No Review of Systems Reports system reviewed and no additional complaints, except as documented and Reports as per [facility] Mental Status Exam Mental Status Exam Patient Appearance: Appropriate Patient Orientation: Person, Place and Time Level of Consciousness: Awake and Appropriate Patient Behavior: Guarded and Poor Eye Contact Mood Description: Calm and Withdrawn Affect Description: Calm and Withdrawn Ability to Follow Directions: Fair Speech Pattern: Clear Thought Process: Goal Oriented Thought Content: positive for Goal Oriented and positive for Evasive Judgement and Insight: impaired Diagnostics Vital Signs (24Hr): Vital Signs - 24 hr 01/26/20 07:25 01/26/20 16:54 Temperature 97.7 F 98.1 F Pulse Rate 77 87 Blood Pressure 118/72 129/64 Body Mass Index 30.7 Labs Results: 01/14/20 23:41 01/14/20 23:41 Medications Medications Current Medications Generic Name Dose Route Start Last Admin Trade Name Freq PRN Reason Stop Dose Admin Acetaminophen 650 mg 01/15/20 19:01 Acetaminophen 325 Mg Tablet PO Q6H PRN Headache/Pain Mild Scale (1-3) Al Hydroxide/Mg Hydroxide 30 ml 01/15/20 19:01 Magnesium Hydrox/Alum Hydrox 30 Ml Oral.Susp PO Q6H PRN Heartburn/Nausea Aripiprazole 5 mg 01/19/20 09:00 01/26/20 09:09 Aripiprazole 5 Mg Tablet PO 5 mg DAILY ASHLEY Administration Bacitracin 1 appl 01/22/20 21:00 01/26/20 21:53 Bacitracin Oint 14 Gm Tube TOPICAL Not Given BID [facility] Protocol Hydroxyzine HCl 25 mg 01/15/20 19:01 01/26/20 21:56 Hydroxyzine Hcl 25 Mg Tablet PO 25 mg BEDTIME PRN Administration Anxiety Hydroxyzine HCl 50 mg 01/15/20 19:59 01/26/20 16:58 Hydroxyzine Hcl 50 Mg Tablet PO 50 mg TID PRN Administration anxiety Magnesium Hydroxide 30 ml 01/15/20 19:01 Milk Of Magnesia 30 Ml Oral.Susp PO DAILY PRN Constipation Oxcarbazepine 300 mg 01/22/20 21:00 01/26/20 21:52 Oxcarbazepine 300 Mg Tablet PO 300 mg BID ASHLEY Administration Quetiapine Fumarate 25 mg 01/16/20 20:09 01/24/20 23:49 Quetiapine Fumarate 25 Mg Tablet PO 25 mg BEDTIME MRX1 PRN Administration anxiety/restlessness Allergies Allergies Allergy/AdvReac Type Severity Reaction Status Date / Time lamotrigine [From Lamictal] Allergy Rash Verified 01/14/20 23:14 Assessment & Plan Pt with hx of depression stabilizing on unit Pt has 3 day notice in No changes to current treatment plan
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
[2020-01-27 06:00] VITALS: BP 113/58; PULSE 73; TEMP 36.4
[2020-01-27] MEDS: OXcarbazepine 300 MG TABLET PO ×2 (09:20→23:02)
[2020-01-27] MEDS: ARIPiprazole 5 MG TABLET PO (09:20)
[2020-01-27 19:00] VITALS: BP 132/72; PULSE 110; TEMP 37.1
[2020-01-27] MEDS: Bacitracin Oint 14 GM TUBE 1 APPL TOPICAL (23:02)
--- NOTE | 2020-01-27 23:59 | P.PNPSI_ITS ---
Subjective Subjective Date of Service: 01/27/20 Reason For Visit: Major Depression Interim History: Vitals reviewed:mild htn Labs reviewed Pt seen, chart reviewed and case discussed with nursing balance staff inspector met with patient in the milue. Pt does not make eye contact. She reports she's good and denies any problems or complaints. She remains reticent and only answers questions with few words. Staff reports they see patient has improving; she is adherent with medications and demonstrating safe behaviors. Medication Compliance: Yes Review of Systems Reports system reviewed and no additional complaints, except as documented and Reports as per [facility] Mental Status Exam Mental Status Exam Patient Appearance: Appropriate Patient Orientation: Person, Place and Time Level of Consciousness: Awake and Appropriate Patient Behavior: Guarded Mood Description: Constricted Affect Description: Calm and Suspicious Ability to Follow Directions: Good Speech Pattern: Clear and Soft-Spoken Thought Process: Goal Oriented Thought Content: positive for Goal Oriented Judgement and Insight: impaired Diagnostics Vital Signs (24Hr): Vital Signs - 24 hr 01/27/20 06:00 01/27/20 19:00 Temperature 97.5 F 98.7 F Pulse Rate 73 110 H Blood Pressure 113/58 L 132/72 Body Mass Index 30.7 Labs Results: 01/14/20 23:41 01/14/20 23:41 Medications Medications Current Medications Generic Name Dose Route Start Last Admin Trade Name Brunoq PRN Reason Stop Dose Admin Acetaminophen 650 mg 01/15/20 19:01 Acetaminophen 325 Mg Tablet PO Q6H PRN Headache/Pain Mild Scale (1-3) Al Hydroxide/Mg Hydroxide 30 ml 01/15/20 19:01 Magnesium Hydrox/Alum Hydrox 30 Ml Oral.Susp PO Q6H PRN Heartburn/Nausea Aripiprazole 5 mg 01/19/20 09:00 01/27/20 09:20 Aripiprazole 5 Mg Tablet PO 5 mg DAILY ASHLEY Administration Bacitracin 1 appl 01/22/20 21:00 01/27/20 23:02 Bacitracin Oint 14 Gm Tube TOPICAL 1 appl BID ASHLEY Administration Protocol Hydroxyzine HCl 25 mg 01/15/20 19:01 01/26/20 21:56 Hydroxyzine Hcl 25 Mg Tablet PO 25 mg BEDTIME PRN Administration Anxiety Hydroxyzine HCl 50 mg 01/15/20 19:59 01/26/20 16:58 Hydroxyzine Hcl 50 Mg Tablet PO 50 mg TID PRN Administration anxiety Magnesium Hydroxide 30 ml 01/15/20 19:01 Milk Of Magnesia 30 Ml Oral.Susp PO DAILY PRN Constipation Oxcarbazepine 300 mg 01/22/20 21:00 01/27/20 23:02 Oxcarbazepine 300 Mg Tablet PO 300 mg BID ASHLEY Administration Quetiapine Fumarate 25 mg 01/16/20 20:09 01/24/20 23:49 Quetiapine Fumarate 25 Mg Tablet PO 25 mg BEDTIME MRX1 PRN Administration anxiety/restlessness Allergies Allergies Allergy/AdvReac Type Severity Reaction Status Date / Time lamotrigine [From Lamictal] Allergy Rash Verified 01/14/20 23:14 Assessment & Plan Pt stabilizing on unit 3 day notice submitted no changes to tx plan
[2020-01-28] MEDS: hydrOXYzine HCL 50 MG TABLET PO ×2 (00:16→23:31)
[2020-01-28] MEDS: QUEtiapine Fumarate 25 MG TABLET PO (00:16)
[2020-01-28 06:40] VITALS: BP 108/63; PULSE 85; RESP 16; TEMP 36.6
[2020-01-28] MEDS: ARIPiprazole 5 MG TABLET PO (08:52)
[2020-01-28] MEDS: OXcarbazepine 300 MG TABLET PO ×2 (08:52→23:31)
--- NOTE | 2020-01-28 09:25 | HO.PSYCHPN ---
Subjective Subjective Date of Service: 01/28/20 Reason For Visit: Major Depression Subjective Notes: 3 Day Interim History: Pt seen, chart reviewed and case discussed with nursing staff Teresa reports that she is feeling much better. She has been speaking with her mother and she is feeling safe to go back and live with her. She has no SI. She wants to be home for the holiday. She reports that she can manage to keep her safety. She has not scratched very much over the weekend. She feels she can be safe on 5 ULB and will let staff know if she feels that she can not manage. Medication Compliance: Yes Side effects from medications: No Attending Groups: Yes Review of Systems Acute medical concerns: No Medical Review of Systems: unchanged Review of Systems Reports system reviewed and no additional complaints, except as documented and Reports as per [facility] Mental Status Exam Mental Status Exam Patient Appearance: Appropriate Patient Orientation: Person, Place and Time Level of Consciousness: Awake and Appropriate Patient Behavior: Guarded Mood Description: Constricted Affect Description: Calm and Suspicious Ability to Follow Directions: Good Speech Pattern: Clear and Soft-Spoken Memory Description: Intact Hallucinations: None Delusions: Not Present Thought Process: Goal Oriented Thought Content: positive for Goal Oriented, negative for Suicidal Ideation and negative for Homicidal Ideation Depressive Symptoms: Low Self Esteem Judgement: Fair Judgement and Insight: impaired Diagnostics Vital Signs (24Hr): Vital Signs - 24 hr 01/27/20 19:00 01/28/20 06:40 Temperature 98.7 F 97.9 F Pulse Rate 110 H 85 Respiratory Rate 16 Blood Pressure 132/72 108/63 Body Mass Index 30.7 Labs Results: 01/14/20 23:41 01/14/20 23:41 Medications Medications Current Medications Generic Name Dose Route Start Last Admin Trade Name Freq PRN Reason Stop Dose Admin Acetaminophen 650 mg 01/15/20 19:01 Acetaminophen 325 Mg Tablet PO Q6H PRN Headache/Pain Mild Scale (1-3) Al Hydroxide/Mg Hydroxide 30 ml 01/15/20 19:01 Magnesium Hydrox/Alum Hydrox 30 Ml Oral.Susp PO Q6H PRN Heartburn/Nausea Aripiprazole 5 mg 01/19/20 09:00 01/28/20 08:52 Aripiprazole 5 Mg Tablet PO 5 mg DAILY ASHLEY Administration Bacitracin 1 appl 01/22/20 21:00 01/27/20 23:02 Bacitracin Oint 14 Gm Tube TOPICAL 1 appl BID ASHLEY Administration Protocol Hydroxyzine HCl 25 mg 01/15/20 19:01 01/26/20 21:56 Hydroxyzine Hcl 25 Mg Tablet PO 25 mg BEDTIME PRN Administration Anxiety Hydroxyzine HCl 50 mg 01/15/20 19:59 01/28/20 00:16 Hydroxyzine Hcl 50 Mg Tablet PO 50 mg TID PRN Administration anxiety Magnesium Hydroxide 30 ml 01/15/20 19:01 Milk Of Magnesia 30 Ml Oral.Susp PO DAILY PRN Constipation Oxcarbazepine 300 mg 01/22/20 21:00 01/28/20 08:52 Oxcarbazepine 300 Mg Tablet PO 300 mg BID ASHLEY Administration Quetiapine Fumarate 25 mg 01/16/20 20:09 01/28/20 00:16 Quetiapine Fumarate 25 Mg Tablet PO 25 mg BEDTIME MRX1 PRN Administration anxiety/restlessness Allergies Allergies Allergy/AdvReac Type Severity Reaction Status Date / Time lamotrigine [From Lamictal] Allergy Rash Verified 01/14/20 23:14 Assessment & Plan Assessment & Plan (1) Major depressive disorder, recurrent severe without psychotic features: Status: Acute Code(s): F33.2 - Major depressive disorder, recurrent severe without psychotic features Assessment and Plan: Advance to 5 ULB If maintains then plan DC for 01/28 or 01/29 Greater than 50% of the session was spent on counseling and/or coordination of care Patient educated on: diagnosis and medication risk/benefits Informed Consent: further education needed Reason for contiued inpatient stay Substantial Risk for: rapid decompensation
[2020-01-28 16:45] VITALS: BP 129/80; PULSE 88; TEMP 37.2
[2020-01-29 06:10] VITALS: BP 110/61; PULSE 82; RESP 16; TEMP 36.9; O2SAT 98
[2020-01-29] MEDS: OXcarbazepine 300 MG TABLET PO (08:43)
[2020-01-29] MEDS: ARIPiprazole 5 MG TABLET PO (08:43)
[2020-01-29] MEDS: Bacitracin Oint 14 GM TUBE 1 APPL TOPICAL (08:46)
--- NOTE | 2020-01-29 09:32 | HO.PSYCHPN ---
Subjective Subjective Reason For Visit: Major Depression Review of Systems Reports system reviewed and no additional complaints, except as documented and Reports as per HPI Diagnostics Vital Signs (24Hr): Vital Signs - 24 hr 01/28/20 16:45 01/29/20 06:10 Temperature 98.9 F 98.4 F Pulse Rate 88 82 Respiratory Rate 16 Blood Pressure 129/80 110/61 Pulse Oximetry 98 Body Mass Index 30.7 Labs Results: 01/14/20 23:41 01/14/20 23:41 Medications Medications Current Medications Generic Name Dose Route Start Last Admin Trade Name Freq PRN Reason Stop Dose Admin Acetaminophen 650 mg 01/15/20 19:01 Acetaminophen 325 Mg Tablet PO Q6H PRN Headache/Pain Mild Scale (1-3) Al Hydroxide/Mg Hydroxide 30 ml 01/15/20 19:01 Magnesium Hydrox/Alum Hydrox 30 Ml Oral.Susp PO Q6H PRN Heartburn/Nausea Aripiprazole 5 mg 01/19/20 09:00 01/29/20 08:43 Aripiprazole 5 Mg Tablet PO 5 mg DAILY ASHLEY Administration Bacitracin 1 appl 01/22/20 21:00 01/29/20 08:46 Bacitracin Oint 14 Gm Tube TOPICAL 1 appl BID ASHLEY Administration Protocol Hydroxyzine HCl 25 mg 01/15/20 19:01 01/26/20 21:56 Hydroxyzine Hcl 25 Mg Tablet PO 25 mg BEDTIME PRN Administration Anxiety Hydroxyzine HCl 50 mg 01/15/20 19:59 01/28/20 23:31 Hydroxyzine Hcl 50 Mg Tablet PO 50 mg TID PRN Administration anxiety Magnesium Hydroxide 30 ml 01/15/20 19:01 Milk Of Magnesia 30 Ml Oral.Susp PO DAILY PRN Constipation Oxcarbazepine 300 mg 01/22/20 21:00 01/29/20 08:43 Oxcarbazepine 300 Mg Tablet PO 300 mg BID ASHLEY Administration Quetiapine Fumarate 25 mg 01/16/20 20:09 01/28/20 00:16 Quetiapine Fumarate 25 Mg Tablet PO 25 mg BEDTIME MRX1 PRN Administration anxiety/restlessness Allergies Allergies Allergy/AdvReac Type Severity Reaction Status Date / Time lamotrigine [From Lamictal] Allergy Rash Verified 01/14/20 23:14 Assessment & Plan Greater than 50% of the session was spent on counseling and/or coordination of care
--- NOTE | 2020-01-29 19:45 | P.DS_ITS ---
DS: Providers Provider Date of admission: 01/15/20 11:14 Date of discharge: 01/29/20 Primary care physician: Félix Christopher MD Attending physician on admission: Vicky Andersen Attending physician on discharge: Vicky Andersen DS: Diagnosis Discharge Diagnosis (1) Major depressive disorder, recurrent severe without psychotic features: Status: Acute DS: Medications Discharge Medications Home Medications: Previous Rx's Medication Instructions Recorded aripiprazole [Abilify] 5 mg PO DAILY #30 tab 01/29/20 ethinyl estradiol 0.01 mg PO DAILY #30 tab 01/29/20 hydroxyzine pamoate 50 mg PO TID PRN #90 cap 01/29/20 oxcarbazepine 300 mg PO BID #60 tab 01/29/20 quetiapine 25 mg PO BEDTIME MRX1 PRN #30 tab 01/29/20 Discharge Plan Discharge Patient Disposition: Home, Self-Care Referrals: [facility] [Other] ([phone]) Felipa Gruber (psychiatrist) [Other] - 02/06/20 11:00 am (Telehealth appointment) Lucie Burk (therapist) [Other] (Left voicemail requesting appointment. Please follow up to schedule) Félix Christopher MD [Primary Care Provider] - (DR CHRISTOPHER S OFFICE WILL CALL YOUR MOTHER WITH APPOINTMENT DATE/TIME) Discharge Medications: New quetiapine 25 mg Tablet 25 mg PO BEDTIME MRX1 PRN (Reason: Anxiety/Restlessness) Qty: 30 RF: 0 oxcarbazepine 300 mg Tablet 300 mg PO BID Qty: 60 RF: 0 aripiprazole [Abilify] 5 mg Tablet 5 mg PO DAILY Qty: 30 RF: 0 Continued hydroxyzine pamoate 50 mg capsule 50 mg PO TID PRN (Reason: anxiety) Qty: 90 RF: 0 ethinyl estradiol 0.01 MG tablet 0.01 mg PO DAILY Qty: 30 RF: 0 Discontinued quetiapine 25 mg tablet 50 mg PO BEDTIME RF: 0 Discharge Orders: Discharge Order (Routine); Ordered 01/29/20 Ordered By: Vicky Andersen Diet: advance to usual diet Activity on Discharge: As tolerated Stand Alone Forms: Community Support Discharge Date/Time: 01/29/20 14:05 Visit Report Forms: Patient Portal Discharge page Care Plan Goals: Improved mood Reduce self harm Reduce alcohol use Health Concerns: Self harm Depressed mood Plan of Treatment: Continue on your medications Follow up with your providers Mental Status Exam Mental Status Exam Patient Appearance: Appropriate Patient Orientation: Person, Place and Time Level of Consciousness: Awake and Appropriate Patient Behavior: Appropriate Mood Description: Constricted Affect Description: Calm Ability to Follow Directions: Good Speech Pattern: Clear and Soft-Spoken Memory Description: Intact Hallucinations: None Delusions: Not Present Thought Process: Goal Oriented Thought Content: positive for Goal Oriented, negative for Suicidal Ideation and negative for Homicidal Ideation Depressive Symptoms: Low Self Esteem Judgement: Fair Judgement and Insight: impaired DS: Summary Hospital Course Hospital Course: 29 year old woman who was referred by N after she was evaluated because of not being able to manage her [facility]. She has been struggling with an increase in depression since October 2019. Precipitants include COVID19, loss of her relationship, friendship issues. She reports that she is constantly thinking that she does not want to live. She has had three hospital stays but has not stabilized. She has been cutting herself, and she has made several different plans. She has tried to strangle herself. On arrival to the unit she was quite despondent. She tried to tied a pillow case around her neck. She is on 1:1. She stated that she does not want to live. She speaks of her distress with a wide smile on her face. She has had trials of lexapro, prozac, and lamictal. Past Psychiatric History: Several admissions since October 2019. Unable to stay out of the hospital. Has failed PHP Recent stay at [facility] from [facility]. She was placed on abilify and trileptal to which she responded well. For much of her stay she was on 1:1 due to self harm. She was ambivalent about returning to her home. However, she gradually settled and she asked to return to her mother's home. She was able to be maintain her safety and have no self harm for 48 hours before DC Status at Discharge Functional status at discharge: independent ambulation Overall status at discharge: patient is progressing back to baseline Time Spent with Patient Time attestation: Total time spent providing and/or coordinating discharge services:
== END 2020-01-29 14:05 | disposition home or self-care (01) | DRG 885 ==
LOC: HO.ED 01-15 00:29 → HO.PM5 01-15 11:14
PROVIDERS: Physician Assistant; Admitting Provider Psychiatry & Neurology Psychiatry; Emergency Provider Emergency Medicine; PCP Internal Medicine; Visit Provider Psychiatry & Neurology Psychiatry
DX: F33.2 Major depressive disorder, recurrent severe without psychotic features (principal); R45.851 Suicidal ideations; F60.3 Borderline personality disorder; Z20.828 Contact with and (suspected) exposure to other viral communicable diseases; Z91.5 Personal history of self-harm; Z79.899 Other long term (current) drug therapy
CPT/HCPCS: 36415; 80053; 80076; 80307; 80320; 81025; 82248; 85025; 87635; 99231; 99232; 99285

== ENCOUNTER 2020-09-13 21:40 | Inpatient (IN) | payer OTHER, SELFPAY ==
[2020-09-13 22:06] VITALS: BP 130/95; BP 154/103; PULSE 103; PULSE 119; RESP 18; TEMP 36.3; O2SAT 98; O2SAT 99; BMI 36.6
--- NOTE | 2020-09-13 23:57 | ED.PSYCH ---
HPI - Psych General Chief Complaint: Psychiatric Symptoms Stated Complaint: crisis Time Seen by Provider: 09/13/20 23:57 History of Present Illness HPI Narrative: Patient is a 29-year-old female with a history of bipolar disorder has suicidal tendencies. Last week took an overdose of lithium was admitted. Patient after getting out decided to cut herself with a staple. Patient sent in for further evaluation. She denies any alcohol no fever no chills no cough no congestion. Did not take an overdose. Patient is from home. Sent in for further evaluation with abrasions to the left forearm Related Data Previous Rx's Medication Instructions Recorded aripiprazole [Abilify] 5 mg PO DAILY #30 tab 01/29/20 ethinyl estradiol 0.01 mg PO DAILY #30 tab 01/29/20 hydroxyzine pamoate 50 mg PO TID PRN #90 cap 01/29/20 oxcarbazepine 300 mg PO BID #60 tab 01/29/20 quetiapine 25 mg PO BEDTIME MRX1 PRN #30 tab 01/29/20 Allergies Allergy/AdvReac Type Severity Reaction Status Date / Time lamotrigine [From Lamictal] Allergy Rash Verified 09/13/20 22:26 Review of Systems Review of Systems: No fever no chills no chest pain or shortness of breath No nausea no vomiting All systems reviewed otherwise negative [facility] Past Medical History Attestation statement: The following information was validated with the patient. Medical History Borderline personality disorder Depression Suicidal thoughts Social History Social History Household Members: Family Housing: House Do you presently have visiting nurse or other home services: Yes Alcohol intake: never Advance Directives: No Patient : No service: No Sexual orientation: Straight/Heterosexual Physical Exam Vital Signs: Vital Signs: Last Vital Signs Temp 97.3 F 09/13/20 22:06 Pulse 119 H 09/13/20 22:06 Resp 18 09/13/20 22:06 BP 154/103 H 09/13/20 22:06 Pulse Ox 98 09/13/20 22:06 Body Mass Index 36.6 Appearance: Alert. Oriented X3. No acute distress. Eyes: Pupils equal, round and reactive to light. ENT: Pharynx normal. Neck: Normal inspection. Neck supple. No lymph nodes noted. No crepitus CVS: Normal heart rate and rhythm. Pulses normal. Normal S1 and S2 Respiratory: No respiratory distress. Breath sounds normal. No Wheezing. No rales Abdomen: Soft and nontender. No rigidity. No distention. good BS x4 Skin: Abrasion noted in the left forearm. Otherwise neurovascularly intact Extremities: No lower extremity edema. Neurovascular intact to all extremities. No Lacerations. No Rash Neuro: Oriented X 3. No motor deficit. No sensory deficit. Moving all extermities. No slurred speech MDM - Psych MDM Narrative Medical decision making narrative: Will get crisis evaluation. Patient medically cleared. No distress. Discharge Plan Discharge Prescriptions: No Action quetiapine 25 mg Tablet 25 mg PO BEDTIME MRX1 PRN (Reason: Anxiety/Restlessness) Qty: 30 RF: 0 oxcarbazepine 300 mg Tablet 300 mg PO BID Qty: 60 RF: 0 aripiprazole [Abilify] 5 mg Tablet 5 mg PO DAILY Qty: 30 RF: 0 hydroxyzine pamoate 50 mg capsule 50 mg PO TID PRN (Reason: anxiety) Qty: 90 RF: 0 ethinyl estradiol 0.01 MG tablet 0.01 mg PO DAILY Qty: 30 RF: 0
[2020-09-14 01:00] LABS: MANUAL DIFF FLAG NO
[2020-09-14 01:04] LABS: Basophils Absolute Auto 0.1 X10*3/uL (0.0-0.2); Basophils Percent Auto 0.6 % (0-2); Eosinophils Absolute Auto 0.3 X10*3/uL (0.0-0.4); Hematocrit 39.3 % (37-47); Hemoglobin 12.7 g/dl (12.0-16.0); Imm Gran Abs Auto 0.03 X10*3/uL (0.00-0.03); Imm Gran Pct Auto 0.3 % (0.0-0.4); Lymphocytes Percent Auto 17.2 % (20-40); Mean Corpuscular HGB Conc 32.3 g/dl (31.0-35.0); Mean Corpuscular Hemoglobin 28.1 pg (27.0-33.0); Mean Corpuscular Volume 86.9 fL (80-98); Mean Platelet Volume 9.7 fL (9.4-12.3); Monocytes Absolute Auto 0.7 X10*3/uL (0.1-1.2); Monocytes Percent Auto 5.7 % (2-11); Neutrophils Absolute Auto 8.3 X10*3/uL (2.0-8.3); Neutrophils Percent Auto 73.2 % (45-73); Platelet Count 381 X10*3/uL (160-400); Red Blood Count 4.52 X10*6/uL (4.20-5.50); Red Cell Distribution Width 13.2 % (11.0-16.0); White Blood Count 11.4 X10*3/uL (4.8-10.8)
[2020-09-14 01:05] LABS: Glucose Urine UA NEG (NEG); Leukocyte Esterase Urine NEG (NEG); Nitrite Urine NEG (NEG); PH 7.5 (5.0-8.0); Urine Blood NEG (NEG); Urine Ketones NEG (NEG); Urine Protein NEG (NEG-TRACE)
[2020-09-14 01:06] LABS: Appearance Urine CLEAR; Color Urine YELLOW
[2020-09-14 01:07] LABS: UPreg QC Valid YES; Urine Pregnancy NEGATIVE (NEGATIVE)
[2020-09-14 01:14] LABS: COVID-19 Test Negative (Negative)
[2020-09-14 01:22] LABS: Lithium < 0.10 mmol/L (0.60-1.20)
[2020-09-14 01:23] LABS: Ethanol < 10 mg/dL
[2020-09-14 01:25] LABS: Amphetamine Screen Urine Not Detected (Not Detect); Barbiturates, Urine Not Detected (Not Detect); Benzodiazepines Screen Urine Not Detected (Not Detect); Cannabinoid Screen Urine Not Detected (Not Detect); Cocaine Screen Urine Not Detected (Not Detect); Opiate Screen Urine Not Detected (Not Detect); Phencyclidine Screen Urine Not Detected (Not Detect)
[2020-09-14 02:04] LABS: Alanine Aminotransferase 21 U/L (0-31); Albumin Level 4.4 g/dL (3.5-5.0); Alkaline Phosphatase 112 U/L (39-117); Anion Gap 16 (12-20); Aspartate Amino Transferase 17 U/L (5-31); Bilirubin Total 0.5 mg/dL (0.0-1.0); Blood Urea Nitrogen 12 mg/dL (9-16); Calcium 9.8 mg/dL (8.4-10.2); Carbon Dioxide 18 mmol/L (22-29); Chloride 110 mmol/L (96-108); Creatinine Clr Calc Pharmacy 121.2; Estimated Glomerular Filt Rate > 60; Glucose Random 99 mg/dL (60-115); Potassium 3.9 mmol/L (3.3-5.1); Sodium 140 mmol/L (135-145); Total Protein 7.2 g/dL (6.5-8.0)
--- NOTE | 2020-09-14 05:46 | PC.NURSE ---
Pt arrived to [facility] ED via EMS during this RN's shift. Pt arrives complaining of suicidal thoughts, attempted suicide recently by overdosing on 50 tablets of [employer] [employer] and was hospitalized at [facility]. Discharged from [facility] on 09/09/20. Pt also reports command auditory hallucinations telling her to kill herself. Pt reports having continued suicidal thoughts, with a plan to tie shoe laces around her neck or to overdose. Superficial lacerations noted to left forearm. Pt reports that she cut herself using martha from a stapler. No sutures needed. Arm cleaned with soap/water, but open to air. Section [address] . Plan for evaluation later this morning with [facility].
[2020-09-14 06:00] VITALS: BP 119/76; PULSE 94; RESP 20; TEMP 36; O2SAT 97
--- NOTE | 2020-09-14 07:47 | PC.NURSE ---
report taken from kei overton pt here for reported si w plan, also sts experiencing ah. [facility] per previous shift rn, pt initially found w shoelaces on their person which was part of their si plan, removed from their person and secured w other belongings. pt seen by [facility] crisis this am, plan for sec 12 inpt bed search. [facility]ctm for dc needs.
[2020-09-14] MEDS: Topiramate 25 MG TABLET 50 MG PO ×2 (09:33→21:15)
[2020-09-14] MEDS: Docusate Sodium 100 MG CAPSULE PO ×2 (09:33→21:15)
[2020-09-14 09:40] VITALS: BP 96/63; PULSE 99; RESP 16; TEMP 37.1; O2SAT 95
--- NOTE | 2020-09-14 10:11 | PC.NURSE ---
pt clozaril held d/t decreased blood pressure, 96/60
--- NOTE | 2020-09-14 12:58 | PC.NURSE ---
this rn over to pt room, pt appears to have moved from lying position in bed to lying position on floor. pt asked what she is doing lying on the floor, sts im trying to smash my head against the floor . pt educated that dangerous behaviors cannot be tolerated in the pod, pt does not appear to have any apparent leeanna or injury to head or face. pt also appears to be attempting to put pillow case around neck. pt sts experiencing ah that are instructing her to hurt her self. all dangerous objects removed by this rn, pt allowed to vent feelings at this time. given prn medications for agitation. pt appears to have pleasant affect. offered safe activities to partake in [employer], pt remains in constant observation at this time. ate 100% of lunch.
[2020-09-14] MEDS: chlorproMAZINE HCl 25 MG TABLET 50 MG PO (13:08)
--- NOTE | 2020-09-14 14:37 | PC.NURSE ---
pt reports feeling better at this time, consistent companionship shown to pt in the [place], continues to exhibit safe behaviors, pleasant affect.
--- NOTE | 2020-09-14 15:51 | PC.NURSE ---
pt continues to attempt to return to pt room, sit in corner, and self harm by hitting head against objects. pt redirected back to [facility] to partake in safe behaviors. pt has remained 1:1 sitter status d/t exhibited behaviors. pt vague about why pt continues to attempt self harm, sts voices are telling me to smash my head . flat affect.
[2020-09-14 17:36] VITALS: BP 134/83; PULSE 103; RESP 18; O2SAT 96
[2020-09-14] MEDS: cloZAPine 100 MG TABLET 150 MG PO (21:15)
[2020-09-14 21:29] VITALS: BP 126/77; PULSE 112; RESP 16; O2SAT 96
--- NOTE | 2020-09-15 | ECG_ITS ---
Test Reason : MEDICAL CLEARANCE Blood Pressure : / mmHG Vent. Rate : 102 BPM Atrial Rate : 102 BPM P-R Int : 166 ms QRS Dur : 084 ms QT Int : 364 ms P-R-T Axes : 051 047 042 degrees QTc Int : 474 ms Sinus tachycardia Otherwise normal ECG No previous ECGs available Referred By: Darleen Matt Electronically Signed By:Sarath Castillo
[2020-09-15 01:12] VITALS: BP 113/65; PULSE 102; RESP 16; TEMP 36.4; O2SAT 96
--- NOTE | 2020-09-15 05:58 | PC.NURSE ---
Patient slept through the night, VSS, no distress observed/reported, med rec completed, disposition per [facility] section 12 inpatient bed search, no behavioral concerns this shift, will continue to monitor.
--- NOTE | 2020-09-15 07:16 | PC.NURSE ---
patient appears to rest at present with even unlabored breaths, patient appears in no distress.
[2020-09-15] MEDS: cloZAPine 100 MG TABLET PO (09:47)
[2020-09-15] MEDS: Topiramate 25 MG TABLET 50 MG PO ×2 (09:47→20:48)
[2020-09-15] MEDS: Docusate Sodium 100 MG CAPSULE PO ×2 (09:47→20:48)
[2020-09-15 13:41] VITALS: BP 117/69; PULSE 104; RESP 16; TEMP 36.6; O2SAT 99
[2020-09-15 18:00] VITALS: BP 128/71; PULSE 118; RESP 18; TEMP 36.9; O2SAT 96
[2020-09-15] MEDS: diphenhydrAMINE HCL 25 MG TABLET PO (20:48)
[2020-09-15] MEDS: cloZAPine 100 MG TABLET 150 MG PO (20:48)
[2020-09-16 06:00] VITALS: BP 140/77; PULSE 96; RESP 16; TEMP 37.1; O2SAT 96
[2020-09-16] MEDS: Topiramate 25 MG TABLET 50 MG PO ×2 (09:08→20:53)
[2020-09-16] MEDS: cloZAPine 100 MG TABLET PO ×2 (09:08→20:54)
[2020-09-16] MEDS: Docusate Sodium 100 MG CAPSULE PO ×2 (09:09→20:53)
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
[2020-09-16] MEDS: chlorproMAZINE HCl 25 MG TABLET 50 MG PO (15:50)
[2020-09-16 18:00] VITALS: PULSE 109; RESP 16; TEMP 37.1; O2SAT 96
[2020-09-16] MEDS: cloZAPine 100 MG TABLET 150 MG PO (21:15)
--- NOTE | 2020-09-16 23:35 | PC.NURSE ---
Addendum entered by Kam Lal RN 09/16/20 23:38: Clozapine 100mg AM dose erroneously documented. Sql Tech notified. Original Note: Clozapine 100mg erroneously documented. Not given. Sql Tech notified.
--- NOTE | 2020-09-17 00:55 | PC.NURSE ---
continues on 1:1 for safety
[2020-09-17 06:00] VITALS: BP 129/81; PULSE 95; RESP 16; TEMP 37.1; O2SAT 97
[2020-09-17] MEDS: Docusate Sodium 100 MG CAPSULE PO ×2 (09:03→20:12)
[2020-09-17] MEDS: cloZAPine 100 MG TABLET PO (09:03)
[2020-09-17] MEDS: Topiramate 25 MG TABLET 50 MG PO ×2 (09:03→20:12)
--- NOTE | 2020-09-17 11:21 | P.PNPSI_ITS ---
Subjective Subjective Date of Service: 09/17/20 Reason For Visit: OVERDOSE Interim History: wearing [facility], seen with [place] worker in her vicinity. agreeable to meet with MD. reports no change in her mood or SI from yesterday. depressed. reports she is sleeping, eating, toileting well. getting along with staff and peers well. no requests for MD. encouraged to speak with about her desire to be in [facility] and to work on getting that arranged through . per staff, attending groups. had thorazine PRN AH which was helpful. CAH to harm self; tried to put pillowcase around her neck. no other notable events or behaviors. Mental Status Exam Mental Status Exam Narrative: disheveled, in [facility]. no PMA/PMR. dysconjugate gaze, poor eye contact. cooperative with interview. speech nml rate and amount, soft, nml latency. thoughts linear and logical without signs of delusion or paranoia. affect constricted, placid, hypo-intense, non-labile. mood depressed. reports ongoing SI/CAH. no HI/VH expressed. Diagnostics Vital Signs (24Hr): Vital Signs - 24 hr 09/16/20 18:00 09/17/20 06:00 Temperature 98.7 F 98.7 F Pulse Rate 109 H 95 Respiratory Rate 16 16 Blood Pressure 129/81 Pulse Oximetry 96 97 Body Mass Index 36.6 Labs Results: 09/14/20 00:53 09/14/20 00:53 Medications Medications Current Medications Generic Name Dose Route Start Last Admin Trade Name Freq PRN Reason Stop Dose Admin Acetaminophen 650 mg 09/15/20 17:49 Acetaminophen 325 Mg Tablet PO Q6H PRN Headache/Pain Mild Scale (1-3) Al Hydroxide/Mg Hydroxide 30 ml 09/15/20 17:49 Magnesium Hydrox/Alum Hydrox 30 Ml Oral.Susp PO Q6H PRN Heartburn/Nausea Bacitracin 1 appl 09/17/20 09:32 Bacitracin Oint 14 Gm Tube TOPICAL BID PRN abrasion Protocol Chlorpromazine HCl 50 mg 09/14/20 08:31 09/16/20 15:50 Chlorpromazine Hcl 25 Mg Tablet PO 50 mg QID PRN Administration Agitation Clozapine 100 mg 09/14/20 09:00 09/17/20 09:03 Clozapine 100 Mg Tablet PO 100 mg DAILY ASHLEY Administration Clozapine 150 mg 09/14/20 21:00 09/16/20 21:15 Clozapine 100 Mg Tablet PO 150 mg BEDTIME ASHLEY Administration Diphenhydramine HCl 25 mg 09/14/20 08:31 09/15/20 20:48 Diphenhydramine Hcl 25 Mg Tablet PO 25 mg QID PRN Administration Sleep Docusate Sodium 100 mg 09/14/20 09:00 09/17/20 09:03 Docusate Sodium 100 Mg Capsule PO 100 mg BID ASHLEY Administration Magnesium Hydroxide 30 ml 09/15/20 17:49 Milk Of Magnesia 30 Ml Oral.Susp PO DAILY PRN Constipation Nicotine Polacrilex 2 mg 09/15/20 17:49 Nicotine Polacrilex 2 Mg Gum BUCCAL Q2H PRN Nicotine Cravings Topiramate 50 mg 09/14/20 09:00 09/17/20 09:03 Topiramate 25 Mg Tablet PO 50 mg BID ASHLEY Administration Trazodone HCl 50 mg 09/15/20 17:49 Trazodone Hcl 50 Mg Tablet PO BEDTIME PRN Insomnia Allergies Allergies Allergy/AdvReac Type Severity Reaction Status Date / Time lamotrigine [From Lamictal] Allergy Rash Verified 09/13/20 22:26 Assessment & Plan Assessment & Plan (1) Borderline personality disorder: Status: Inactive Code(s): F60.3 - Borderline personality disorder Assessment and Plan: pt currently on CO. will have to re-evaluate appropriateness of this status and implement plan to wean her from such a level of attention on the unit. in addition, will consider the negative effects of prolonged hospitalization on the mental health of persons with BPD and will aim for a brief stay. as pt believes her admission could have been avoided had PHP been ready to go after discharge from [facility], will move to get PHP set up prior to discharge. (2) Major depressive disorder, recurrent severe without psychotic features: Status: Acute Code(s): F33.2 - Major depressive disorder, recurrent severe without psychotic features Assessment and Plan: continue outpt medications regimen for now. Greater than 50% of the session was spent on counseling and/or coordination of care Reason for contiued inpatient stay Substantial Risk for: harm to self and rapid decompensation
[2020-09-17] MEDS: chlorproMAZINE HCl 25 MG TABLET 50 MG PO (13:05)
[2020-09-17] MEDS: traZODone HCL 50 MG TABLET PO (20:12)
[2020-09-17] MEDS: cloZAPine 100 MG TABLET 150 MG PO (20:12)
[2020-09-17] MEDS: diphenhydrAMINE HCL 25 MG TABLET PO (20:12)
[2020-09-17 20:14] VITALS: BP 134/79; PULSE 113; TEMP 36.9
[2020-09-18 06:00] VITALS: BP 140/60; PULSE 100; TEMP 36.8; O2SAT 98
[2020-09-18] MEDS: cloZAPine 100 MG TABLET PO (09:37)
[2020-09-18] MEDS: Docusate Sodium 100 MG CAPSULE PO ×2 (09:37→20:48)
[2020-09-18] MEDS: Topiramate 25 MG TABLET 50 MG PO ×2 (09:37→20:49)
--- NOTE | 2020-09-18 11:07 | HO.PSYCHPN ---
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 agreeable to meet with MD. reports she is feeling a bit better than prior, mood all right. her SI/SIBI is all right now. she states she has been working on ways to cope with it such as talking to others, playing games, attending groups. she feels these efforts are working well and she is agreeable to DC the 1:1. she reports if she begins to feel terribly unsafe she will seek out staff support. no requests for MD. encouraged to speak with SW about her desire to be in [facility] and to work on getting that arranged through . per staff, no notable events or behaviors overnight. Mental Status Exam Mental Status Exam Narrative: disheveled, in [facility]. no PMA/PMR. dysconjugate gaze, poor eye contact. cooperative with interview. speech nml rate and amount, soft, nml latency. thoughts linear and logical without signs of delusion or paranoia. affect flexible, hypo-intense, non-labile. mood all right. reports SIBI is all right now. no HI/VH expressed. Diagnostics Vital Signs (24Hr): Vital Signs - 24 hr 09/17/20 20:14 Temperature 98.5 F Pulse Rate 113 H Blood Pressure 134/79 Body Mass Index 36.6 Labs Results: 09/14/20 00:53 09/14/20 00:53 Medications Medications Current Medications Generic Name Dose Route Start Last Admin Trade Name Freq PRN Reason Stop Dose Admin Acetaminophen 650 mg 09/15/20 17:49 Acetaminophen 325 Mg Tablet PO Q6H PRN Headache/Pain Mild Scale (1-3) Al Hydroxide/Mg Hydroxide 30 ml 09/15/20 17:49 Magnesium Hydrox/Alum Hydrox 30 Ml Oral.Susp PO Q6H PRN Heartburn/Nausea Bacitracin 1 appl 09/17/20 09:32 Bacitracin Oint 14 Gm Tube TOPICAL BID PRN abrasion Protocol Chlorpromazine HCl 50 mg 09/14/20 08:31 09/17/20 13:05 Chlorpromazine Hcl 25 Mg Tablet PO 50 mg QID PRN Administration Agitation Clozapine 100 mg 09/14/20 09:00 09/18/20 09:37 Clozapine 100 Mg Tablet PO 100 mg DAILY ASHLEY Administration Clozapine 150 mg 09/14/20 21:00 09/17/20 20:12 Clozapine 100 Mg Tablet PO 150 mg BEDTIME ASHLEY Administration Diphenhydramine HCl 25 mg 09/14/20 08:31 09/17/20 20:12 Diphenhydramine Hcl 25 Mg Tablet PO 25 mg QID PRN Administration Sleep Docusate Sodium 100 mg 09/14/20 09:00 09/18/20 09:37 Docusate Sodium 100 Mg Capsule PO 100 mg BID ASHLEY Administration Magnesium Hydroxide 30 ml 09/15/20 17:49 Milk Of Magnesia 30 Ml Oral.Susp PO DAILY PRN Constipation Nicotine Polacrilex 2 mg 09/15/20 17:49 Nicotine Polacrilex 2 Mg Gum BUCCAL Q2H PRN Nicotine Cravings Topiramate 50 mg 09/14/20 09:00 09/18/20 09:37 Topiramate 25 Mg Tablet PO 50 mg BID ASHLEY Administration Trazodone HCl 50 mg 09/15/20 17:49 09/17/20 20:12 Trazodone Hcl 50 Mg Tablet PO 50 mg BEDTIME PRN Administration Insomnia Allergies Allergies Allergy/AdvReac Type Severity Reaction Status Date / Time lamotrigine [From Lamictal] Allergy Rash Verified 09/13/20 22:26 Assessment & Plan Assessment & Plan (1) Borderline personality disorder: Status: Inactive Code(s): F60.3 - Borderline personality disorder Assessment and Plan: started on 1:1 at admission and changed to Q5min checks 09/18 as pt reported an improvement in her Sx. in deciding whether or not to put this patient on 1:1, consider the negative effects of prolonged hospitalization on the mental health of persons with BPD; aim for a brief stay. as pt believes her admission could have been avoided had PHP been ready to go after discharge from [facility], will move to get PHP set up prior to discharge. (2) Major depressive disorder, recurrent severe without psychotic features: Status: Acute Code(s): F33.2 - Major depressive disorder, recurrent severe without psychotic features Assessment and Plan: continue outpt medications regimen for now. Greater than 50% of the session was spent on counseling and/or coordination of care Reason for contiued inpatient stay Substantial Risk for: harm to self
[2020-09-18] MEDS: chlorproMAZINE HCl 25 MG TABLET 50 MG PO (15:59)
[2020-09-18] MEDS: cloZAPine 100 MG TABLET 150 MG PO (20:48)
[2020-09-19 06:00] VITALS: BP 111/67; PULSE 97; RESP 16; TEMP 36.6; O2SAT 98
[2020-09-19] MEDS: Docusate Sodium 100 MG CAPSULE PO ×2 (08:01→20:33)
[2020-09-19] MEDS: cloZAPine 100 MG TABLET PO (08:01)
[2020-09-19] MEDS: Topiramate 25 MG TABLET 50 MG PO ×2 (08:01→20:33)
--- NOTE | 2020-09-19 11:22 | P.PNPSI_ITS ---
Subjective Subjective Date of Service: 09/19/20 Reason For Visit: OVERDOSE Interim History: wearing 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 agreeable to meet with MD. reports she is feeling a bit better than prior, mood calm and relaxed. her SI/SIBI is all right. she denies any SI/SIBI since yesterday. MD reviews plan to have her on dayroom obs during the day and CO at night, with which she is in agreement. review her desire to engage in PHP, which she states she would plan to do from her home. on being asked what would allow her to go home, she replies that she would need to be able to stay safe. per staff, within ten minutes of coming off of 1:1 yes terday pt was found sitting on her bathroom floor drawing blood on her arm with a plastic fork. no other notable events or behaviors. Mental Status Exam Mental Status Exam Narrative: disheveled, in [facility]. no PMA/PMR. dysconjugate gaze, fair eye contact. cooperative with interview. speech nml rate and amount, soft, nml latency. thoughts linear and logical without signs of delusion or paranoia. affect flexible, hypo-intense, non-labile. mood calm and relaxed. reports SIBI is all right and that she has had none since yesterday. no HI/VH expressed. Diagnostics Vital Signs (24Hr): Vital Signs - 24 hr 09/19/20 06:00 Temperature 97.9 F Pulse Rate 97 Respiratory Rate 16 Blood Pressure 111/67 Pulse Oximetry 98 Body Mass Index 36.6 Labs Results: 09/14/20 00:53 09/14/20 00:53 Medications Medications Current Medications Generic Name Dose Route Start Last Admin Trade Name Freq PRN Reason Stop Dose Admin Acetaminophen 650 mg 09/15/20 17:49 Acetaminophen 325 Mg Tablet PO Q6H PRN Headache/Pain Mild Scale (1-3) Al Hydroxide/Mg Hydroxide 30 ml 09/15/20 17:49 Magnesium Hydrox/Alum Hydrox 30 Ml Oral.Susp PO Q6H PRN Heartburn/Nausea Bacitracin 1 appl 09/17/20 09:32 Bacitracin Oint 14 Gm Tube TOPICAL BID PRN abrasion Protocol Chlorpromazine HCl 50 mg 09/14/20 08:31 09/18/20 15:59 Chlorpromazine Hcl 25 Mg Tablet PO 50 mg QID PRN Administration Agitation Clozapine 100 mg 09/14/20 09:00 09/19/20 08:01 Clozapine 100 Mg Tablet PO 100 mg DAILY ASHLEY Administration Clozapine 150 mg 09/14/20 21:00 09/18/20 20:48 Clozapine 100 Mg Tablet PO 150 mg BEDTIME ASHLEY Administration Diphenhydramine HCl 25 mg 09/14/20 08:31 09/17/20 20:12 Diphenhydramine Hcl 25 Mg Tablet PO 25 mg QID PRN Administration Sleep Docusate Sodium 100 mg 09/14/20 09:00 09/19/20 08:01 Docusate Sodium 100 Mg Capsule PO 100 mg BID ASHLYE Administration Magnesium Hydroxide 30 ml 09/15/20 17:49 Milk Of Magnesia 30 Ml Oral.Susp PO DAILY PRN Constipation Nicotine Polacrilex 2 mg 09/15/20 17:49 Nicotine Polacrilex 2 Mg Gum BUCCAL Q2H PRN Nicotine Cravings Topiramate 50 mg 09/14/20 09:00 09/19/20 08:01 Topiramate 25 Mg Tablet PO 50 mg BID ASHLEY Administration Trazodone HCl 50 mg 09/15/20 17:49 09/17/20 20:12 Trazodone Hcl 50 Mg Tablet PO 50 mg BEDTIME PRN Administration Insomnia Allergies Allergies Allergy/AdvReac Type Severity Reaction Status Date / Time lamotrigine [From Lamictal] Allergy Rash Verified 09/13/20 22:26 Assessment & Plan Assessment & Plan (1) Borderline personality disorder: Status: Inactive Code(s): F60.3 - Borderline personality disorder Assessment and Plan: started on 1:1 at admission and changed to Q5min checks 09/18 as pt reported an improvement in her Sx. pt began self-harming within 10 minutes of the change and was put back on CO. staff to attempt to minimize close contact with pt while on CO duty. in deciding whether or not to put this patient on 1:1, consider the negative effects of prolonged hospitalization on the mental health of persons with BPD; aim for a brief stay. as pt believes her admission could have been avoided had PHP been ready to go after discharge from [facility], will move to get PHP set up prior to discharge. pt has been referred to [facility] PHP, for which there is a 3-4 week wait list. will plan to discharge pt to home prior to start of program. (2) Major depressive disorder, recurrent severe without psychotic features: Status: Acute Code(s): F33.2 - Major depressive disorder, recurrent severe without psychotic features Assessment and Plan: continue outpt medications regimen for now. Greater than 50% of the session was spent on counseling and/or coordination of care Reason for contiued inpatient stay Substantial Risk for: harm to self, inability to function and rapid decompensation
--- NOTE | 2020-09-19 13:47 | PC.NURSE ---
Pts mom took most of her belongings home at pts request. Phone and ipod, wall worker and all belongings in clear tote bag.
[2020-09-19 17:42] VITALS: BP 121/78; PULSE 78; RESP 18; TEMP 36.7; O2SAT 99
[2020-09-19] MEDS: cloZAPine 100 MG TABLET 150 MG PO (20:32)
[2020-09-20 06:00] VITALS: BP 98/58; PULSE 99; RESP 20; TEMP 36.8; O2SAT 96
[2020-09-20] MEDS: Docusate Sodium 100 MG CAPSULE PO ×2 (08:35→21:05)
[2020-09-20] MEDS: Topiramate 25 MG TABLET 50 MG PO ×2 (08:36→21:06)
[2020-09-20] MEDS: cloZAPine 100 MG TABLET PO (08:36)
--- NOTE | 2020-09-20 12:54 | HO.PSYCHPN ---
Subjective Subjective Date of Service: 09/20/20 Reason For Visit: OVERDOSE Subjective Notes: Conditional Voluntary Healthcare Proxy: No Interim History: Pt reports feeling better wants to come off close obs, feels she could let staff know has not felt urge to sib in 24 hrs- Showered, less AH , denied current SI , feels she can keep busy with watching her shows and word searches Medication Compliance: Yes Side effects from medications: No Attending Groups: Intermittent Review of Systems Acute medical concerns: No Mental Status Exam Mental Status Exam Narrative: dressed in joel with blanket around her was watching tv on her own, talking with her mother on the phone Patient Appearance: Appropriate Patient Orientation: Person, Place and Situation Level of Consciousness: Awake Patient Behavior: Appropriate and Dependent Mood Description: Calm Affect Description: Anxious and Blunted Patient Cognition Impaired: Yes Ability to Follow Directions: Fair Speech Pattern: Clear Memory Description: Intact Hallucinations: Auditory Thought Process: Intact and Goal Oriented Thought Content: positive for [place] Judgement: Fair Diagnostics Vital Signs (24Hr): Vital Signs - 24 hr 09/19/20 17:42 09/20/20 06:00 Temperature 98.1 F 98.3 F Pulse Rate 78 99 Respiratory Rate 18 20 Blood Pressure 121/78 98/58 L Pulse Oximetry 99 96 Body Mass Index 36.6 Labs Results: 09/14/20 00:53 09/14/20 00:53 Medications Medications Current Medications Generic Name Dose Route Start Last Admin Trade Name Freq PRN Reason Stop Dose Admin Acetaminophen 650 mg 09/15/20 17:49 Acetaminophen 325 Mg Tablet PO Q6H PRN Headache/Pain Mild Scale (1-3) Al Hydroxide/Mg Hydroxide 30 ml 09/15/20 17:49 Magnesium Hydrox/Alum Hydrox 30 Ml Oral.Susp PO Q6H PRN Heartburn/Nausea Bacitracin 1 appl 09/17/20 09:32 Bacitracin Oint 14 Gm Tube TOPICAL BID PRN abrasion Protocol Chlorpromazine HCl 50 mg 09/14/20 08:31 09/18/20 15:59 Chlorpromazine Hcl 25 Mg Tablet PO 50 mg QID PRN Administration Agitation Clozapine 100 mg 09/14/20 09:00 09/20/20 08:36 Clozapine 100 Mg Tablet PO 100 mg DAILY ASHLEY Administration Clozapine 150 mg 09/14/20 21:00 09/19/20 20:32 Clozapine 100 Mg Tablet PO 150 mg BEDTIME ASHLEY Administration Diphenhydramine HCl 25 mg 09/14/20 08:31 09/17/20 20:12 Diphenhydramine Hcl 25 Mg Tablet PO 25 mg QID PRN Administration Sleep Docusate Sodium 100 mg 09/14/20 09:00 09/20/20 08:35 Docusate Sodium 100 Mg Capsule PO 100 mg BID ASHLEY Administration Magnesium Hydroxide 30 ml 09/15/20 17:49 Milk Of Magnesia 30 Ml Oral.Susp PO DAILY PRN Constipation Nicotine Polacrilex 2 mg 09/15/20 17:49 Nicotine Polacrilex 2 Mg Gum BUCCAL Q2H PRN Nicotine Cravings Topiramate 50 mg 09/14/20 09:00 09/20/20 08:36 Topiramate 25 Mg Tablet PO 50 mg BID ASHLEY Administration Trazodone HCl 50 mg 09/15/20 17:49 09/17/20 20:12 Trazodone Hcl 50 Mg Tablet PO 50 mg BEDTIME PRN Administration Insomnia Allergies Allergies Allergy/AdvReac Type Severity Reaction Status Date / Time lamotrigine [From Lamictal] Allergy Rash Verified 09/13/20 22:26 Assessment & Plan Assessment & Plan (1) Borderline personality disorder: Status: Inactive Code(s): F60.3 - Borderline personality disorder Assessment and Plan: Pt feels she can come off co, doing better with self regulation strategies will move to get PHP set up prior to discharge. pt has been referred to [facility] PHP, for which there is a 3-4 week wait list. will plan to discharge pt to home prior to start of program. (2) Major depressive disorder, recurrent severe without psychotic features: Status: Acute Code(s): F33.2 - Major depressive disorder, recurrent severe without psychotic features Assessment and Plan: continue outpt medications regimen for now. Greater than 50% of the session was spent on counseling and/or coordination of care Reason for contiued inpatient stay Substantial Risk for: inability to function and rapid decompensation
[2020-09-20 20:30] VITALS: BP 120/68; PULSE 113; TEMP 37; O2SAT 94
[2020-09-20] MEDS: cloZAPine 100 MG TABLET 150 MG PO (21:05)
[2020-09-21 06:00] VITALS: BP 109/64; PULSE 99; RESP 16; TEMP 36.6; O2SAT 96
[2020-09-21 07:32] LABS: MANUAL DIFF FLAG NO
[2020-09-21 07:37] LABS: Basophils Absolute Auto 0.1 X10*3/uL (0.0-0.2); Basophils Percent Auto 0.9 % (0-2); Eosinophils Absolute Auto 0.6 X10*3/uL (0.0-0.4); Eosinophils Percent Auto 6.6 % (0-4); Hematocrit 39.1 % (37-47); Hemoglobin 12.6 g/dl (12.0-16.0); Imm Gran Abs Auto 0.03 X10*3/uL (0.00-0.03); Imm Gran Pct Auto 0.3 % (0.0-0.4); Lymphocytes Percent Auto 23.3 % (20-40); Mean Corpuscular HGB Conc 32.2 g/dl (31.0-35.0); Mean Corpuscular Hemoglobin 28.2 pg (27.0-33.0); Mean Corpuscular Volume 87.5 fL (80-98); Mean Platelet Volume 10.2 fL (9.4-12.3); Monocytes Absolute Auto 0.8 X10*3/uL (0.1-1.2); Monocytes Percent Auto 8.7 % (2-11); Neutrophils Absolute Auto 5.2 X10*3/uL (2.0-8.3); Neutrophils Percent Auto 60.2 % (45-73); Platelet Count 286 X10*3/uL (160-400); Red Blood Count 4.47 X10*6/uL (4.20-5.50); Red Cell Distribution Width 13.2 % (11.0-16.0); White Blood Count 8.6 X10*3/uL (4.8-10.8)
[2020-09-21] MEDS: Docusate Sodium 100 MG CAPSULE PO ×2 (08:44→20:16)
[2020-09-21] MEDS: Topiramate 25 MG TABLET 50 MG PO ×2 (08:44→20:16)
[2020-09-21] MEDS: cloZAPine 100 MG TABLET PO (08:44)
--- NOTE | 2020-09-21 12:59 | HO.PSYCHPN ---
Subjective Subjective Date of Service: 09/21/20 Reason For Visit: OVERDOSE Subjective Notes: Conditional Voluntary Healthcare Proxy: No Guardianship: No Medical Problems Affecting Mental Status: No Interim History: wants to sign a 3 day so she can go home and wait for php - explained to pt doesn't have to sign a 3d to be dced- Pt doing much better on 5 min checks, no si , no sib, feeling more positive Medication Compliance: Yes Side effects from medications: No Attending Groups: Intermittent Mental Status Exam Mental Status Exam Patient Appearance: Appropriate Patient Orientation: Person, Place, Time and Situation Level of Consciousness: Awake Patient Behavior: Appropriate and Passive Mood Description: Calm Affect Description: Calm Patient Cognition Impaired: Yes Ability to Follow Directions: Fair Speech Pattern: Clear Hallucinations: Auditory (less ) Thought Process: Intact and Goal Oriented Thought Content: positive for [place] of Content Judgement: Fair Diagnostics Vital Signs (24Hr): Vital Signs - 24 hr 09/20/20 20:30 09/21/20 06:00 Temperature 98.6 F 97.9 F Pulse Rate 113 H 99 Respiratory Rate 16 Blood Pressure 120/68 109/64 Pulse Oximetry 94 96 Body Mass Index 36.6 Labs Results: 09/21/20 07:22 09/14/20 00:53 Labs: Laboratory Results - last 48 hr 09/21/20 07:22 WBC 8.6 RBC 4.47 Hgb 12.6 Hct 39.1 MCV 87.5 MCH 28.2 MCHC 32.2 RDW 13.2 Plt Count 286 MPV 10.2 Immature Gran % (Auto) 0.3 Neut % (Auto) 60.2 Lymph % (Auto) 23.3 [place] % (Auto) 8.7 Eos % (Auto) 6.6 H Baso % (Auto) 0.9 Lymph # (Auto) 2.0 [place] # (Auto) 0.8 Eos # (Auto) 0.6 H Baso # (Auto) 0.1 Abs Immat Gran (auto) 0.03 Absolute Neuts (auto) 5.2 Absolute Nucleated RBC 0.000 Nucleated RBC % (auto) 0.0 Medications Medications Current Medications Generic Name Dose Route Start Last Admin Trade Name Freq PRN Reason Stop Dose Admin Acetaminophen 650 mg 09/15/20 17:49 Acetaminophen 325 Mg Tablet PO Q6H PRN Headache/Pain Mild Scale (1-3) Al Hydroxide/Mg Hydroxide 30 ml 09/15/20 17:49 Magnesium Hydrox/Alum Hydrox 30 Ml Oral.Susp PO Q6H PRN Heartburn/Nausea Bacitracin 1 appl 09/17/20 09:32 Bacitracin Oint 14 Gm Tube TOPICAL BID PRN abrasion Protocol Chlorpromazine HCl 50 mg 09/14/20 08:31 09/18/20 15:59 Chlorpromazine Hcl 25 Mg Tablet PO 50 mg QID PRN Administration Agitation Clozapine 100 mg 09/14/20 09:00 09/21/20 08:44 Clozapine 100 Mg Tablet PO 100 mg DAILY ASHLEY Administration Clozapine 150 mg 09/14/20 21:00 09/20/20 21:05 Clozapine 100 Mg Tablet PO 150 mg BEDTIME ASHLEY Administration Diphenhydramine HCl 25 mg 09/14/20 08:31 09/17/20 20:12 Diphenhydramine Hcl 25 Mg Tablet PO 25 mg QID PRN Administration Sleep Docusate Sodium 100 mg 09/14/20 09:00 09/21/20 08:44 Docusate Sodium 100 Mg Capsule PO 100 mg BID ASHLEY Administration Magnesium Hydroxide 30 ml 09/15/20 17:49 Milk Of Magnesia 30 Ml Oral.Susp PO DAILY PRN Constipation Nicotine Polacrilex 2 mg 09/15/20 17:49 Nicotine Polacrilex 2 Mg Gum BUCCAL Q2H PRN Nicotine Cravings Topiramate 50 mg 09/14/20 09:00 09/21/20 08:44 Topiramate 25 Mg Tablet PO 50 mg BID ASHLEY Administration Trazodone HCl 50 mg 09/15/20 17:49 09/17/20 20:12 Trazodone Hcl 50 Mg Tablet PO 50 mg BEDTIME PRN Administration Insomnia Allergies Allergies Allergy/AdvReac Type Severity Reaction Status Date / Time lamotrigine [From Lamictal] Allergy Rash Verified 09/13/20 22:26 Assessment & Plan Assessment & Plan (1) Borderline personality disorder: Status: Inactive Code(s): F60.3 - Borderline personality disorder Assessment and Plan: Did ok on 5 min checks- denies further si/sib (2) Major depressive disorder, recurrent severe without psychotic features: Status: Acute Code(s): F33.2 - Major depressive disorder, recurrent severe without psychotic features Assessment and Plan: continue outpt medications regimen for now. less AH dep 2/10 anxiety 6/10 Greater than 50% of the session was spent on counseling and/or coordination of care Reason for contiued inpatient stay Substantial Risk for: inability to function and rapid decompensation
[2020-09-21 19:49] VITALS: BP 124/77; PULSE 110; TEMP 36.7; O2SAT 99
[2020-09-21] MEDS: traZODone HCL 50 MG TABLET PO (20:16)
[2020-09-21] MEDS: cloZAPine 100 MG TABLET 150 MG PO (20:16)
[2020-09-21] MEDS: diphenhydrAMINE HCL 25 MG TABLET PO (20:16)
[2020-09-22 06:00] VITALS: BP 115/65; PULSE 97; RESP 20; TEMP 36.8; O2SAT 90
[2020-09-22] MEDS: Docusate Sodium 100 MG CAPSULE PO ×2 (09:44→20:34)
[2020-09-22] MEDS: cloZAPine 100 MG TABLET PO (09:44)
[2020-09-22] MEDS: Topiramate 25 MG TABLET 50 MG PO ×2 (09:44→20:35)
--- NOTE | 2020-09-22 11:09 | P.PNPSI_ITS ---
Subjective Subjective Date of Service: 09/22/20 Reason For Visit: OVERDOSE Interim History: pt reports she is feeling better than last week, mood improved, thoughts of self-harm improved. has been off of CO since tuesday. would like to discharge tomorrow. per SW, pt's mother can come pick her up tomorrow at 2 pm. no medication changes. per staff, off of CO, attending groups. no self- harming. mood improved, no SI/HI. had good visit with mother yesterday. slept well overnight. Mental Status Exam Mental Status Exam Narrative: adequately groomed, in [facility]. no PMA/PMR. dysconjugate gaze, good eye contact. cooperative with interview. speech nml rate and amount, soft, nml latency. thoughts linear and logical without signs of delusion or paranoia. affect flexible, hypo-intense, non-labile. mood i'm happy. denies SI/SIBI (MRE 3 days ago)/HI/AVH.. Diagnostics Vital Signs (24Hr): Vital Signs - 24 hr 09/21/20 19:49 09/22/20 06:00 Temperature 98.1 F 98.2 F Pulse Rate 110 H 97 Respiratory Rate 20 Blood Pressure 124/77 115/65 Pulse Oximetry 99 90 L Body Mass Index 36.6 Labs Results: 09/21/20 07:22 09/14/20 00:53 Labs: Laboratory Results - last 48 hr 09/21/20 07:22 WBC 8.6 RBC 4.47 Hgb 12.6 Hct 39.1 MCV 87.5 MCH 28.2 MCHC 32.2 RDW 13.2 Plt Count 286 MPV 10.2 Immature Gran % (Auto) 0.3 Neut % (Auto) 60.2 Lymph % (Auto) 23.3 [place] % (Auto) 8.7 Eos % (Auto) 6.6 H Baso % (Auto) 0.9 Lymph # (Auto) 2.0 [place] # (Auto) 0.8 Eos # (Auto) 0.6 H Baso # (Auto) 0.1 Abs Immat Gran (auto) 0.03 Absolute Neuts (auto) 5.2 Absolute Nucleated RBC 0.000 Nucleated RBC % (auto) 0.0 Medications Medications Current Medications Generic Name Dose Route Start Last Admin Trade Name Freq PRN Reason Stop Dose Admin Acetaminophen 650 mg 09/15/20 17:49 Acetaminophen 325 Mg Tablet PO Q6H PRN Headache/Pain Mild Scale (1-3) Al Hydroxide/Mg Hydroxide 30 ml 09/15/20 17:49 Magnesium Hydrox/Alum Hydrox 30 Ml Oral.Susp PO Q6H PRN Heartburn/Nausea Bacitracin 1 appl 09/17/20 09:32 Bacitracin Oint 14 Gm Tube TOPICAL BID PRN abrasion Protocol Chlorpromazine HCl 50 mg 09/14/20 08:31 09/18/20 15:59 Chlorpromazine Hcl 25 Mg Tablet PO 50 mg QID PRN Administration Agitation Clozapine 100 mg 09/14/20 09:00 09/22/20 09:44 Clozapine 100 Mg Tablet PO 100 mg DAILY ASHLEY Administration Clozapine 150 mg 09/14/20 21:00 09/21/20 20:16 Clozapine 100 Mg Tablet PO 150 mg BEDTIME ASHLEY Administration Diphenhydramine HCl 25 mg 09/14/20 08:31 09/21/20 20:16 Diphenhydramine Hcl 25 Mg Tablet PO 25 mg QID PRN Administration Sleep Docusate Sodium 100 mg 09/14/20 09:00 09/22/20 09:44 Docusate Sodium 100 Mg Capsule PO 100 mg BID ASHLEY Administration Magnesium Hydroxide 30 ml 09/15/20 17:49 Milk Of Magnesia 30 Ml Oral.Susp PO DAILY PRN Constipation Nicotine Polacrilex 2 mg 09/15/20 17:49 Nicotine Polacrilex 2 Mg Gum BUCCAL Q2H PRN Nicotine Cravings Topiramate 50 mg 09/14/20 09:00 09/22/20 09:44 Topiramate 25 Mg Tablet PO 50 mg BID ASHLEY Administration Trazodone HCl 50 mg 09/15/20 17:49 09/21/20 20:16 Trazodone Hcl 50 Mg Tablet PO 50 mg BEDTIME PRN Administration Insomnia Allergies Allergies Allergy/AdvReac Type Severity Reaction Status Date / Time lamotrigine [From Lamictal] Allergy Rash Verified 09/13/20 22:26 Assessment & Plan Assessment & Plan (1) Borderline personality disorder: Status: Inactive Code(s): F60.3 - Borderline personality disorder Assessment and Plan: started on 1:1 at admission and changed to Q5min checks 09/18 as pt reported an improvement in her Sx. pt began self-harming within 10 minutes of the change and was put back on CO. staff to attempt to minimize close contact with pt while on CO duty. in deciding whether or not to put this patient on 1:1, co nsider the negative effects of prolonged hospitalization on the mental health of persons with BPD; aim for a brief stay. as pt believes her admission could have been avoided had PHP been ready to go after discharge from [facility], will move to get PHP set up prior to discharge. pt has been referred to [facility], for which there is a 3-4 week wait list. has been opff of CO since 09/20, no lamin f-harming. asking for discharge. DC to mother's care 09/23 @ 2 pm. (2) Major depressive disorder, recurrent severe without psychotic features: Status: Acute Code(s): F33.2 - Major depressive disorder, recurrent severe without psychotic features Assessment and Plan: continue outpt medications regimen for now. Greater than 50% of the session was spent on counseling and/or coordination of care Reason for contiued inpatient stay Substantial Risk for: harm to self, inability to function and rapid decompensation
[2020-09-22] MEDS: Acetaminophen 325 MG TABLET 650 MG PO (19:00)
[2020-09-22] MEDS: cloZAPine 100 MG TABLET 150 MG PO (20:34)
[2020-09-22] MEDS: diphenhydrAMINE HCL 25 MG TABLET PO (20:34)
[2020-09-22] MEDS: traZODone HCL 50 MG TABLET PO (20:35)
[2020-09-22 21:04] VITALS: BP 132/86; PULSE 119; TEMP 36.4; O2SAT 99
[2020-09-23 09:32] VITALS: BP 111/72; PULSE 92; RESP 18; TEMP 36.6; O2SAT 98
[2020-09-23] MEDS: Docusate Sodium 100 MG CAPSULE PO (09:33)
[2020-09-23] MEDS: Topiramate 25 MG TABLET 50 MG PO (09:33)
[2020-09-23] MEDS: cloZAPine 100 MG TABLET PO (09:33)
--- NOTE | 2020-09-23 12:17 | PM.PSYDC ---
DS: Providers Provider Date of Service: 09/23/20 Date of admission: 09/15/20 16:43 Primary care physician: Unknown Physician DS: Diagnosis Discharge Diagnosis (1) Borderline personality disorder: Status: Inactive (2) Major depressive disorder, recurrent severe without psychotic features: Status: Acute DS: Medications Discharge Medications Home Medications: Home Medications Medication Instructions Recorded Confirmed chlorpromazine 50 mg PO QID PRN 09/14/20 09/14/20 clozapine 100 mg PO DAILY 09/14/20 09/14/20 clozapine 150 mg PO BEDTIME 09/14/20 09/14/20 diphenhydramine HCl [Banophen] 25 mg PO QID PRN 09/14/20 09/14/20 docusate sodium 100 mg PO BID 09/14/20 09/14/20 glycopyrrolate 1 tab PO BID 09/14/20 09/14/20 topiramate 1 tab PO BID 09/14/20 09/14/20 Discharge Plan Discharge Patient Disposition: Home, Self-Care Discharge Diagnosis: Major Depressive Disorder, Moderate Referrals: Lucie Burk (therapy) [Other] - 09/25/20 10:00 am (Telehealth Appointment ) Felipa Olvera (psychiatry) [Other] - 10/06/20 10:00 am (Telehealth Appointment) Partial Hospitalization Program (PHP) [Other] - 1 Week (You are currently on the waiting list You should call once a week to check in and see where you are on the list) Shahana Lauren MD [Physician] - 09/29/20 3:20 pm (Follow up in person. ) Discharge Medications: Continued clozapine 100 mg tablet 100 mg PO DAILY RF: 0 diphenhydramine HCl [Banophen] 25 mg capsule 25 mg PO QID PRN (Reason: Sleep) RF: 0 chlorpromazine 50 mg tablet 50 mg PO QID PRN (Reason: Agitation) RF: 0 glycopyrrolate 1 mg tablet 1 tab PO BID RF: 0 docusate sodium 100 mg capsule 100 mg PO BID RF: 0 topiramate 50 mg tablet 1 tab PO BID RF: 0 clozapine 150 mg Tablet,Disintegrating 150 mg PO BEDTIME RF: 0 Discharge Orders: Discharge Order (Routine); Ordered 09/23/20 Ordered By: Brian Garcia Diet: regular diet Activity on Discharge: As tolerated Stand Alone Forms: Patient Portal Discharge page, Community Support Care Plan Goals: maintain independent living outside of the hospital. refrain from self-harm. improve mood to be positive and stable. Health Concerns: none Plan of Treatment: continue to take medications as prescribed. attend appointments as scheduled. engage in [facility] once intake available. Assessment: patient is not a danger to herself or others currently and is suitable for discharge to outpatient care. Discharge Date/Time: 09/23/20 14:21 Mental Status Exam Mental Status Exam Narrative: adequately groomed, in hospital [facility]. no PMA/PMR. dysconjugate gaze, good eye contact. cooperative with interview. speech nml rate and amount, soft, nml latency. thoughts linear and logical without signs of delusion or paranoia. affect flexible, normo-intense, non-labile. mood good. happy. denies SI/SIBI/HI/AVH. Data Data Completed and Pending Completed studies during hospitalization [Text1]: 09/21/20 07:22 WBC 8.6 RBC 4.47 Hgb 12.6 Hct 39.1 MCV 87.5 MCH 28.2 MCHC 32.2 RDW 13.2 Plt Count 286 MPV 10.2 Immature Gran % (Auto) 0.3 Neut % (Auto) 60.2 Lymph % (Auto) 23.3 Calvert % (Auto) 8.7 Eos % (Auto) 6.6 H Baso % (Auto) 0.9 Lymph # (Auto) 2.0 Calvert # (Auto) 0.8 Eos # (Auto) 0.6 H Baso # (Auto) 0.1 Abs Immat Gran (auto) 0.03 Absolute Neuts (auto) 5.2 Absolute Nucleated RBC 0.000 Nucleated RBC % (auto) 0.0 DS: Summary Hospital Course Hospital Course: per Jose WILCOX 09/16 H&P: per crisis evaluation pt was discharged from [facility] about a week ago to [facility], from whence she was to engage in a PHP program. over the course of the week at [facility] she developed worsened AH and SI and ended up scratching herself with a staple. she also reported plan to hang herself. she was then referred for admission. on discussion with this senior writer pt offered that she was supposed to have started in PHP while at respite but that it never happened. she stated she believed if it had happened she could have avoided the present hospitalization. she stated she believed the CO [employer] operator was helpful but acknowledged she had never actually harmed herself inpatient (she reported having thoughts to strangulate herself with bed sheets and pillowcases). Past Psychiatric History: pt reports h/o about 10 hosps; Several admissions since October 2019. reports SAs Mar and Aug 2020 both via lithium overdose. reports h/o SIB via scratching self with martha. developmentally delayed. 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 agreeable to meet with MD. reports no change in her mood or SI from yesterday. depressed. reports she is sleeping, eating, toileting well. getting along with staff and peers well. no requests for MD. encouraged to speak with SW about her desire to be in PHP and to work on getting that arranged through SW. per staff, attending groups. had thorazine PRN AH which was helpful. CAH to harm self; tried to put pillowcase around her neck. no other notable events or behaviors. per Jose WILCOX 09/18 Progress Note: wearing [facility] jo[facility], seen with [employer] liqu[employer] natural [employer] plant operator in her vicinity. agreeable to meet with MD. reports she is feeling a bit better than prior, mood all right. her SI/SIBI is all right now. she states she has been working on ways to cope with it such as talking to others, playing games, attending groups. she feels these efforts are working well and she is agreeable to DC the 1:1. she reports if she begins to feel terribly unsafe she will seek out staff support. no requests for MD. encouraged to speak with SW about her desire to be in PHP and to work on getting that arranged through SW. per staff, no notable events or behaviors overnight. per Jose WILCOX 09/19 Progress Note: wearing [facility] jo[facility], seen with [employer] plant operator in her vicinity. agreeable to meet with . reports she is feeling a bit better than prior, mood calm and relaxed. her SI/SIBI is all right. she denies any SI/SIBI since yesterday. MD reviews plan to have her on dayroom obs during the day and CO at night, with which she is in agreement. review her desire to engage in PHP, which she states she would plan to do from her home. on being asked what would allow her to go home, she replies that she would need to be able to stay safe. per staff, within ten minutes of coming off of 1:1 yesterday pt was found sitting on her bathroom floor drawing blood on her arm with a plastic fork. no other notable events or behaviors. per Jose WILCOX 09/22 Progress Note: pt reports she is feeling better than last week, mood improved, thoughts of self-harm improved. has been off of CO since tuesday. would like to discharge tomorrow. per SW, pt's mother can come pick her up tomorrow at 2 pm. no medication changes. per staff, off of CO, attending groups. no self-harming. mood improved, no SI/HI. had good visit with mother yesterday. slept well overnight. Precis: started on 1:1 at admission and changed to Q5min checks 09/18 as pt reported an improvement in her Sx. pt began self-harming within 10 minutes of the change and was put back on CO. staff to attempt to minimize close contact with pt while on CO duty. in deciding whether or not to put this patient on 1:1, consider the negative effects of prolonged hospitalization on the mental health of persons with BPD; aim for a brief stay. as pt believes her admission could have been avoided had PHP been ready to go after discharge from [facility], will move to get PHP set up prior to discharge. pt has been referred to [facility], for which there is a 3-4 week wait list. off of CO since 09/20, no self-harming. asking for discharge. DCed to mother's care 09/23 @ 2 pm. Time Spent with Patient Time attestation: Total time spent providing and/or coordinating discharge services:
--- NOTE | 2020-09-23 14:20 | PC.NURSE ---
PT aware and ready for discharge. PT denies SI/H. Pt mood is bright, pt is future focused looking forward to partial hospitalization program. Pt understands discharge instructions, all questions answered. PT ambulated off unit with steady gait, belongings returned.
== END 2020-09-23 14:21 | disposition home or self-care (01) | DRG 885 ==
LOC: HO.ED 22:57 → HO.PADLT16 09-15 17:00
PROVIDERS: Emergency Medicine Emergency Medical Services; Admitting Provider Psychiatry & Neurology Psychiatry; Emergency Provider Emergency Medicine; Visit Provider Psychiatry & Neurology Psychiatry
DX: F33.2 Major depressive disorder, recurrent severe without psychotic features (principal); R45.851 Suicidal ideations; F60.3 Borderline personality disorder; Z91.5 Personal history of self-harm; Z20.822 Contact with and (suspected) exposure to COVID-19; Z79.899 Other long term (current) drug therapy
CPT/HCPCS: 36415; 80053; 80178; 80307; 81003; 81025; 82077; 85025; 87635; 93005; 99285; Q0163